=== PATIENT | male | born 1975 | race Caucasian/White ===

== ENCOUNTER 2018-12-05 05:23 | Emergency (ER) | payer SELFPAY ==
[~2018-12-05] VITALS: Ht 182.9 cm; Wt 83.9 kg
--- NOTE | 2018-12-05 05:30 | NUR ---
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 -TRAUMA, +DYSURIA, -HEMATURIA. NAD NOTED. RESP EVEN AND UNLABORED. PREVIOUS BURN NOTED ON R FOREARM. PT ON MONITOR IN BED 1. WILL CONTINUE TO MONITOR.
--- NOTE | 2018-12-05 05:33 | NUR ---
URINE COLLECTED AND SENT TO LAB
[2018-12-05 05:46] LABS: APPEARANCE,URINE CLEAR (CLEAR); BILIRUBIN,URINE NEGATIVE (NEGATIVE); BLOOD, URINE TRACE-INTA Ery/uL (NEGATIVE); COLOR,URINE YELLOW (YELLOW); KETONES,URINE NEGATIVE (NEGATIVE); LEUKOCYTE ESTERASE ,URINE NEGATIVE (NEGATIVE); NITRITE, URINE NEGATIVE (NEGATIVE); PROTEIN,URINE NEGATIVE (NEGATIVE); UGLUCOSE NEGATIVE (NEGATIVE)
[2018-12-05 06:01] LABS: BACTERIA,URINE Few /HPF (None Seen); RBC,URINE 21-50 /HPF (0-2); SQUAMOUS EPITHELIAL CELL,UR Rare /HPF (None Seen)
[2018-12-05] MEDS ORDERED: KETOROLAC TROMETHAMINE INJ 30 MG/ML VIAL ONE (06:50)
[2018-12-05] MEDS ORDERED: KETOROLAC TROMETHAMINE INJ 30 MG/ML VIAL IV ONE (07:00)
[2018-12-05] MEDS ORDERED: IV NS 0.9% 1,000 ML BAG IV ONE (07:00)
--- NOTE | 2018-12-05 07:10 | NUR ---
UNABLE TO OBTAIN IV ACCESS. AWARE.
--- NOTE | 2018-12-05 07:15 | NUR ---
PHLEB AT BEDSIDE FOR LAB DRAW
[2018-12-05 07:23] LABS: BASOPHILS % (AUTO) 0.4 % (0.0-2.0); EOSINOPHILS % (AUTO) 0.4 % (0.0-6.0); HEMATOCRIT 37 % (39-51); HEMOGLOBIN 12.3 g/dL (13.5-17.5); LYMPHOCYTES # (AUTO) 0.9 /CMM (0.8-4.8); LYMPHOCYTES % (AUTO) 16.6 % (20.0-44.0); MEAN CORPUSCULAR HGB CONC 33 g/dl (31.0-36.0); MEAN CORPUSCULAR VOLUME 87 fL (80-96); MONOCYTES # (AUTO) 0.4 /CMM (0.1-1.30); MONOCYTES % (AUTO) 7.6 % (2.0-12.0); NEUTROPHILS # (AUTO) 4.1 /CMM (1.8-8.9); PLATELET COUNT (AUTO) 253 /CMM (150-450); RED BLOOD CELL COUNT(AUTO) 4.31 MIL/uL (4.5-6.0); WHITE BLOOD COUNT (AUTO) 5.4 K/uL (4.3-11.0)
[2018-12-05 07:27] LABS: CALCIUM, SERUM 8.2 mg/dL (8.5-10.1); CREATININE 0.8 mg/dL (0.6-1.3); POTASSIUM 3.7 mmol/L (3.5-5.1)
--- NOTE | 2018-12-05 07:31 | NUR ---
REPORT GIVEN TO ANA LONG FOR AMANDA
[2018-12-05] MEDS ORDERED: HYDROCODONE/APAP 10/325MG 1 EA TABLET ONE (07:41)
--- NOTE | 2018-12-05 07:49 | NUR ---
PATIENT UPSET, INFORMED PATIENT MD DISCONTINUED MEDICATIONS AND SHE CHANGED MEDICATION ORDER TO NORCO. PATIENT REFUSING NORCO. MD AWARE. PATIENT LEFT AWOL. EXPLAINED RISKS AND BENEFITS. PATIENT STILL LEFT.
[2018-12-05 07:53] VITALS: BP 136/81
[2018-12-05] MEDS ORDERED: HYDROCODONE/APAP 10/325MG 1 EA TABLET PO ONE (08:00)
== END 2018-12-05 07:56 | disposition left against medical advice (07) ==
LOC: ER 05:30
DX: R31.9 Hematuria, unspecified (principal); F15.10 Other stimulant abuse, uncomplicated; F29 Unspecified psychosis not due to a substance or known physiological condition; F41.9 Anxiety disorder, unspecified; F17.200 Nicotine dependence, unspecified, uncomplicated
CPT/HCPCS: 36415; 80048; 80305; 81001; 85025; 99283; J1885; J7030; 81000-TC

== ENCOUNTER 2018-12-08 01:48 | Emergency (ER) | payer MEDICAID ==
[~2018-12-08] VITALS: Ht 180.3 cm; Wt 83.9 kg
[2018-12-08 01:51] VITALS: BP 116/67
[2018-12-08] MEDS ORDERED: IBUPROFEN 600 MG TABLET PO ONE (02:55)
[2018-12-08] MEDS: IBUPROFEN 600 MG TABLET PO ONE (03:01)
--- NOTE | 2018-12-08 03:24 | NUR ---
Patient given written and verbal discharge instructions. Patient verbalizes understanding of instructions. Patient is ambulatory with steady gait. Refuses offer of group home placement. Patient given list of available shelters in surrounding area, PT DENIES BEING HOMELESS.
== END 2018-12-08 04:00 | disposition home or self-care (01) ==
LOC: EDUNIT# 01:48 → ER 01:51
DX: S93.402A Sprain of unspecified ligament of left ankle, initial encounter (principal); F17.200 Nicotine dependence, unspecified, uncomplicated; Z59.0 Homelessness; W01.0XXA Fall on same level from slipping, tripping and stumbling without subsequent striking against object, initial encounter; Y93.01 Activity, walking, marching and hiking; Y92.89 Other specified places as the place of occurrence of the external cause; Y99.8 Other external cause status
CPT/HCPCS: 73590-TC; 73610-TC

== ENCOUNTER 2018-12-08 17:04 | Inpatient (IN) | payer MEDICAID ==
[~2018-12-08] VITALS: Ht 180.3 cm; Wt 79.4 kg
--- NOTE | 2018-12-08 17:38 | NUR ---
BIB SELF W C/O R GROIN HERNIA PAIN RADIATING TO R LOWER BACK, 06/11 PS, TO ER BED 14, HOOKED TO MONITOR, AWAITING MD WITT
--- NOTE | 2018-12-08 17:55 | NUR ---
SPINNING MULE OPERATOR DEGRASSE AT BEDSIDE
[2018-12-08] MEDS ORDERED: IV NS 0.9% 1,000 ML BAG IV ONE (18:00)
[2018-12-08] MEDS ORDERED: ONDANSETRON HCL/PF 4 MG/2 ML VIAL IVP ONE (18:00)
[2018-12-08] MEDS ORDERED: HYDROMORPHONE INJ 2 MG/ML DISP.SYRIN IV ONE (18:00)
[2018-12-08] MEDS ORDERED: ONDANSETRON HCL/PF 4 MG/2 ML VIAL ONE (18:15)
[2018-12-08] MEDS ORDERED: HYDROMORPHONE 1 MG/1 ML DISP.SYRIN ONE (18:16)
[2018-12-08 18:35] LABS: BASOPHILS # (AUTO) 0.1 /CMM (0.0-0.2); BASOPHILS % (AUTO) 1.2 % (0.0-2.0); EOSINOPHILS % (AUTO) 0.2 % (0.0-6.0); HEMATOCRIT 35 % (39-51); HEMOGLOBIN 11.7 g/dL (13.5-17.5); LYMPHOCYTES # (AUTO) 1.3 /CMM (0.8-4.8); LYMPHOCYTES % (AUTO) 18.2 % (20.0-44.0); MEAN CORPUSCULAR HGB CONC 34 g/dl (31.0-36.0); MEAN CORPUSCULAR VOLUME 85 fL (80-96); MONOCYTES # (AUTO) 0.6 /CMM (0.1-1.30); MONOCYTES % (AUTO) 8.4 % (2.0-12.0); NEUTROPHILS # (AUTO) 5.2 /CMM (1.8-8.9); PLATELET COUNT (AUTO) 273 /CMM (150-450); RED BLOOD CELL COUNT(AUTO) 4.05 MIL/uL (4.5-6.0); WHITE BLOOD COUNT (AUTO) 7.3 K/uL (4.3-11.0)
[2018-12-08 18:42] LABS: CALCIUM, SERUM 8.2 mg/dL (8.5-10.1); CREATININE 0.9 mg/dL (0.6-1.3); POTASSIUM 3.8 mmol/L (3.5-5.1)
[2018-12-08] MEDS ORDERED: IOHEXOL-300 100 ML VIAL IV ONE (18:44)
[2018-12-08 18:48] LABS: BILIRUBIN,DIRECT 0.1 mg/dL (0.0-0.2); BILIRUBIN,TOTAL 0.4 mg/dL (0.2-1.0)
--- NOTE | 2018-12-08 18:54 | NUR ---
WHEELED OUT VIA RNEY FOR CT SCAN
--- NOTE | 2018-12-08 19:10 | NUR ---
FARZANEH IV PERIPHERAL LINE INFILTRATED, REINSERTED IVP @ RFA 20G
--- NOTE | 2018-12-08 20:14 | NUR ---
CARLINE LOWRY PER TECHNICAL CABLE JOINTER DEGRASSE
[2018-12-08] MEDS ORDERED: LORAZEPAM INJ 2 MG/ML VIAL IV ONE (20:30)
[2018-12-08] MEDS ORDERED: LORAZEPAM INJ 2 MG/ML VIAL ONE (20:42)
[2018-12-08] MEDS ORDERED: OLANZAPINE 10 MG VIAL IM ONE ×2 (20:42→21:00)
[2018-12-08] MEDS ORDERED: KETOROLAC TROMETHAMINE INJ 30 MG/ML VIAL ONE (20:42)
--- NOTE | 2018-12-08 20:42 | NUR ---
[facility] dr fung. awaiting call back
--- NOTE | 2018-12-08 20:53 | NUR ---
URINE SAMPLE SENT TO LAB
[2018-12-08 20:59] LABS: APPEARANCE,URINE Clear (CLEAR); BILIRUBIN,URINE Negative (NEGATIVE); BLOOD, URINE Negative Ery/uL (NEGATIVE); COLOR,URINE Yellow (YELLOW); KETONES,URINE Negative (NEGATIVE); LEUKOCYTE ESTERASE ,URINE Negative (NEGATIVE); NITRITE, URINE Negative (NEGATIVE); PROTEIN,URINE 30 mg/dl (NEGATIVE); UGLUCOSE Negative (NEGATIVE)
[2018-12-08] MEDS ORDERED: KETOROLAC TROMETHAMINE INJ 30 MG/ML VIAL IV ONE (21:00)
[2018-12-08 21:12] LABS: BACTERIA,URINE None seen /HPF (None Seen); RBC,URINE 0-2 /HPF (0-2); SQUAMOUS EPITHELIAL CELL,UR Few /HPF (None Seen); WBC,URINE 0-2 /HPF (0-3)
--- NOTE | 2018-12-08 21:12 | NUR ---
EPID PANEL LANDSCAPE MANAGER DR DAIGLE PAGED FOR THE THIRD TIME.
--- NOTE | 2018-12-08 21:30 | NUR ---
PT IN BED ASLEEP, EASILY AROUSABLE BY VOICE. HOOKED TO MONITOR, KEPT SAFE, WARM AND COMFORTABLE.
--- NOTE | 2018-12-08 21:44 | NUR ---
PT ASSIGNED 120-2 TELE
--- NOTE | 2018-12-08 22:00 | NUR ---
REPORT GIVEN TO MS ERIC PEREZ OF TELE UNIT
[2018-12-08 22:45] VITALS: BP 97/50
[2018-12-08] MEDS ORDERED: OLANZAPINE 10 MG VIAL IM PRN (23:00)
[2018-12-08] MEDS ORDERED: MAGNESIUM HYDROXIDE 30 ML UDC PO PRN (23:00)
[2018-12-08] MEDS ORDERED: ONDANSETRON HCL/PF 4 MG/2 ML VIAL IVP PRN (23:00)
--- NOTE | 2018-12-08 23:00 | NUR ---
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 Patient is lethargic, not opening his eyes, not speaking, but follows simple commands. Unable to obtain information. Patient has IV access on RFA g#20, intact and patent, no signs of infiltration. Patient was cleaned and changed. Tele monitor in place, sinus rhythm 90. Skin assessment done- no skin issues. Noted an immobilizer on R lower leg. As per report, patient is homeless. Suitcase and belongings at bedside. Safety measures in place; call light within easy reach. Bed in lowest, locked position with siderails x 3up, bed alarm engaged. Will continue to monitor accordingly
--- NOTE | 2018-12-08 23:15 | NUR ---
RN NOTES Dr. Sylvester at bedside. Patient remains lethargic.
[2018-12-08] MEDS ORDERED: IV PREMIX NS +20MEQ KCL 1 L IV ONE (23:37)
[2018-12-09] VITALS (8 sets, daily range): BP systolic 105–120; BP diastolic 58–77
--- NOTE | 2018-12-09 | NUR ---
RN NOTES IVF of NS with KCL 20meQ started. Unable to scan barcode. IVF checked with CN and another RN. Manual barcode entered.
[2018-12-09] MEDS: MORPHINE SULFATE INJ 2 MG/ML DISP.SYRIN IV PRN ×4 (02:03→20:55)
--- NOTE | 2018-12-09 02:05 | NUR ---
RN NOTES Patient moaning and saying "pain". BP checked, 116/67. Morphine 2mg IV given as ordered
--- NOTE | 2018-12-09 06:23 | NUR ---
ACCOUNT DEVELOPER CLOSING NOTES Patient still asleep in bed, comfortable. Breathing even and unlabored. Not in any distress. Peripheral IV infusing at 80mL/hr. Tele monitor in place- sinus rhythm 89. All needs attended to. All medications given as ordered. No acute changes overnight. Safety measures in place. Call light within reach. Bed in low, locked position. Will endorse AMANDA to oncoming RN
[2018-12-09 06:45] LABS: BASOPHILS % (AUTO) 0.5 % (0.0-2.0); EOSINOPHILS % (AUTO) 0.2 % (0.0-6.0); HEMATOCRIT 34 % (39-51); HEMOGLOBIN 11.5 g/dL (13.5-17.5); LYMPHOCYTES % (AUTO) 25.4 % (20.0-44.0); MEAN CORPUSCULAR HGB CONC 34 g/dl (31.0-36.0); MEAN CORPUSCULAR VOLUME 85 fL (80-96); MONOCYTES # (AUTO) 0.9 /CMM (0.1-1.30); MONOCYTES % (AUTO) 11.4 % (2.0-12.0); NEUTROPHILS % (AUTO) 62.5 % (43.0-81.0); PLATELET COUNT (AUTO) 246 /CMM (150-450); RED BLOOD CELL COUNT(AUTO) 3.94 MIL/uL (4.5-6.0); WHITE BLOOD COUNT (AUTO) 8.1 K/uL (4.3-11.0)
[2018-12-09 07:09] LABS: ALBUMIN 2.5 g/dL (3.4-5.0); BILIRUBIN,TOTAL 0.6 mg/dL (0.2-1.0); CALCIUM, SERUM 7.9 mg/dL (8.5-10.1); CREATININE 0.8 mg/dL (0.6-1.3); MAGNESIUM 1.9 mg/dL (1.8-2.4); PHOSPHORUS 2.9 mg/dL (2.5-4.9); POTASSIUM 4.2 mmol/L (3.5-5.1); TOTAL PROTEIN, SERUM 6.1 g/dL (6.4-8.2)
--- NOTE | 2018-12-09 07:48 | NUR ---
VICE PRESIDENT OF OPERATIONS OPENING NOTES RECEIVED BEDSIDE REPORT PATIENT SLEEPING ABLE TO AROUSE WITH VOICE AND TOUCH A/O X3 SATURATING WELL ON ROOM AIR. NO SIGNS OR SYMPTOMS OF RESPIRATORY DISTRESS OR ACUTE PAIN NOTED AT THIS TIME. IVF RUNNING @80ML/HR IN RFA # [address] GAUGE[address]AFETY PRECAUTIONS IN PLACE BED ALARM ON AND IN LOW POSITION . CALL LIGHT WITHIN REACH WILL CONT TO MONITOR FOR ANY CHANGES
[2018-12-09] MEDS: ACETAMINOPHEN 325 MG TABLET PO PRN ×2 (08:05→15:38)
[2018-12-09] MEDS: PANTOPRAZOLE 40 MG TABLET.DR PO SCH (08:05)
--- NOTE | 2018-12-09 11:33 | NUR ---
Social service consult requested by Dr. Martínez for homelessness. Pt. 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 SW attempted to assess pt. however, was informed pt. Pt's RN Blanquita that pt. is not alert and oriented at this time. SW to follow up again with pt. when he is more alert and oriented.
[2018-12-09] MEDS: Potassium Chloride 20 MEQ in IV NS 0.9% 1,000 ML IV PRN ×3 (12:02)
[2018-12-09] MEDS: LORAZEPAM INJ 2 MG/ML VIAL IV PRN (15:44)
[2018-12-09] MEDS ORDERED: FEE PK DOSING 1 MIN EA MC ONE (17:08)
[2018-12-09] MEDS: CEFTRIAXONE 2 G in IV D5W 100 ML IV SCH (17:46)
[2018-12-09] MEDS: VANCOMYCIN 1.25 GM in IV D5W 500 ML IV SCH (18:32)
--- NOTE | 2018-12-09 19:06 | NUR ---
LITIGATOR CLOSING NOTES BEDSIDE REPORT GIVEN TO NOC PATIENT SLEEPING ABLE TO AROUSE WITH VOICE AND TOUCH A/O X3 SATURATING WELL ON ROOM AIR. NO SIGNS OR SYMPTOMS OF RESPIRATORY DISTRESS OR ACUTE PAIN NOTED AT THIS TIME.APPETITE GOOD IVF RUNNING @80ML/HR IN RFA # 20 GAUGE. SAFETY PRECAUTIONS IN PLACE BED ALARM ON AND IN LOW POSITION . CALL LIGHT WITHIN REACH WILL CONT TO MONITOR FOR ANY CHANGES
[2018-12-09] MEDS: HEPARIN SODIUM, PORCINE 5000 UNITS/1 ML VIAL SQ SCH (21:09)
[2018-12-10] VITALS (10 sets, daily range): BP systolic 114–131; BP diastolic 68–80
[2018-12-10] MEDS: MORPHINE SULFATE INJ 2 MG/ML DISP.SYRIN IV PRN ×4 (00:31→21:17)
[2018-12-10] MEDS: VANCOMYCIN 1.25 GM in IV D5W 500 ML IV SCH ×3 (01:18→18:06)
[2018-12-10] MEDS: LORAZEPAM INJ 2 MG/ML VIAL IV PRN ×2 (01:35→13:18)
[2018-12-10] MEDS: ACETAMINOPHEN 325 MG TABLET PO PRN (03:06)
[2018-12-10 06:45] LABS: BASOPHILS % (AUTO) 0.4 % (0.0-2.0); EOSINOPHILS % (AUTO) 0.2 % (0.0-6.0); HEMATOCRIT 34 % (39-51); HEMOGLOBIN 11.8 g/dL (13.5-17.5); LYMPHOCYTES # (AUTO) 1.9 /CMM (0.8-4.8); LYMPHOCYTES % (AUTO) 21.7 % (20.0-44.0); MEAN CORPUSCULAR HGB CONC 34 g/dl (31.0-36.0); MEAN CORPUSCULAR VOLUME 84 fL (80-96); MONOCYTES % (AUTO) 11.5 % (2.0-12.0); NEUTROPHILS # (AUTO) 5.7 /CMM (1.8-8.9); NEUTROPHILS % (AUTO) 66.2 % (43.0-81.0); PLATELET COUNT (AUTO) 263 /CMM (150-450); RED BLOOD CELL COUNT(AUTO) 4.12 MIL/uL (4.5-6.0); WHITE BLOOD COUNT (AUTO) 8.6 K/uL (4.3-11.0)
[2018-12-10 06:55] LABS: CALCIUM, SERUM 8.1 mg/dL (8.5-10.1); CREATININE 0.7 mg/dL (0.6-1.3); MAGNESIUM 1.9 mg/dL (1.8-2.4); PHOSPHORUS 3.1 mg/dL (2.5-4.9); POTASSIUM 3.7 mmol/L (3.5-5.1)
--- NOTE | 2018-12-10 06:55 | NUR ---
CAFE TEAM MEMBER CLOSING NOTES, PATIENT SLEEPING ABLE TO AROUSE WITH VERBAL STIMULI, SATURATING WELL ON ROOM AIR, NO SOB/ACUTE DISTRESS NOTED AT THIS TIME, REMAINED STABLE THROUGHOUT THE NIGHT, IV ACCES PATENT AND INTACT, NO S/S OF INFILTRATION NOTED, IVF RUNNING @80ML/HR IN RFA # 20 GAUGE, SAFETY PRECAUTIONS IN PLACE, BED LOCKED AND IN LOW POSITION, CALL LIGHT WITHIN REACH, WILL ENDORSE CONTINUITY OF CARE TO ONCOMING NURSE.
[2018-12-10] MEDS: Potassium Chloride 20 MEQ in IV NS 0.9% 1,000 ML IV PRN (07:22)
--- NOTE | 2018-12-10 07:25 | NUR ---
RN OPENING NOTE RECEIVED PATIENT ASLEEP, BUT EASILY AROUSABLE. ALERT AND ORIENTED. USES THE URINAL. ON TELE MONITOR SR 80-90s. HAS RIGHT FOREARM #20, WITH KCL 20 M0 MEQ IN NS AT 80 ML/HR. BED. PATIENT IS AMBULATORY PER NOC SHIFT. BED ON LOWEST POSITION. CALL LIGHT WITHIN REACH, WILL CONT TO MONITOR
[2018-12-10] MEDS: PANTOPRAZOLE 40 MG TABLET.DR PO SCH (08:20)
[2018-12-10] MEDS: HEPARIN SODIUM, PORCINE 5000 UNITS/1 ML VIAL SQ SCH ×2 (08:25→21:24)
--- NOTE | 2018-12-10 10:56 | NUR ---
ILAN met with pt. bedside for an assessment. Pt. is alert and oriented x 3. Pt. has his suitcase bedside. Pt. appears disheveled. SW inquired with pt. if he is homeless. Pt. replied stating, " I am in between places." SW asked pt. to elaborate his living situation. Pt. declined to participate in the assessment and informed SW, " I feel answer your questions when I feel better." Pt. is not cooperating at this time. SW to reassess when pt. is cooperative and feels better. ILAN updated LEONARD FRANKI Winslow with the aforementioned information.
[2018-12-10] MEDS: NICOTINE PATCH (14MG) 14 MG PATCH.TD24 TD SCH (14:28)
--- NOTE | 2018-12-10 16:02 | NUR ---
RN NOTE PATIENT WAS COMPLAINING OF PAIN ALL DAY, RIGHT LOWER BACK AND GENERALIZED PAIN. HAS BEEN GIVEN MORPHINE AND ATIVAN. IVF STILL RUNNING. PATIENT ASKED FOR NICOTINE PATCH. JESUS PENN ORDERED AND WAS GIVEN TO THE PATIENT. PATIENT CURRENTLY ASLEEP.
[2018-12-10] MEDS: CEFTRIAXONE 2 G in IV D5W 100 ML IV SCH (17:20)
--- NOTE | 2018-12-10 18:51 | NUR ---
RN CLOSING NOTE PATIENT ASLEEP, BUT EASILY AROUSABLE. CONSTANTLY ASKING FOR PAIN MEDICATION AND ATIVAN. ALL MEDS ARE GIVEN, PLUS ABX. URINAL OUTPUT 1800 ML. NO BM. DID NOT TRY TO AMBULATE TODAY. SLEPT ALL DAY. REFUSES TO BE BOTHERED AND CLEANED. CALL LIGHT WITHIN REACH. ALL NEEDS ARE MET. WILL ENDORSE TO NOC SHIFT
--- NOTE | 2018-12-10 19:50 | NUR ---
RN OPENING NOTE RECEIVED PATIENT ASLEEP, BUT EASILY AROUSAL. PATIENT IS ALERT AND ORIENTEDX4. USES THE URINAL. ON TELE MONITOR WITH SR . HAS RIGHT FOREARM #20 IV LINE PATIENT AND INTACT WITH KCL 20 M0 MEQ IN NS AT 80 ML/HR. PATIENT IS AMBULATORY PER AM SHIFT BUT DOESN'T WANT TO WALK AND WANTS TO STAY IN BED. BED ON LOWEST, LOCKED POSITION. CALL LIGHT WITHIN REACH, WILL CONT TO MONITOR
[2018-12-11] VITALS (7 sets, daily range): BP systolic 101–125; BP diastolic 64–80
[2018-12-11] MEDS: LORAZEPAM INJ 2 MG/ML VIAL IV PRN ×2 (00:08→10:15)
[2018-12-11] MEDS: VANCOMYCIN 1.25 GM in IV D5W 500 ML IV SCH ×3 (02:32→19:00)
[2018-12-11] MEDS: Potassium Chloride 20 MEQ in IV NS 0.9% 1,000 ML IV PRN (02:36)
[2018-12-11] MEDS: MORPHINE SULFATE INJ 2 MG/ML DISP.SYRIN IV PRN ×5 (03:53→22:35)
--- NOTE | 2018-12-11 04:05 | NUR ---
RN NOTES PATIENT'S REPORT IS GIVEN TO ANA VEGA FOR CONT. OF PATIENT CARE. PATIENT IS LYING IN BED,AWAKE, ALERT AND ORIENTED X2-3. BREATHING EVEN AND UNLABORED ON ROOM AIR. NO SOB, RESPIRATORY DISTRESS OR COMPLAINTS OF PAIN NOTED AT THIS TIME.PATIENT IS IN STABLE CONDITION.
--- NOTE | 2018-12-11 04:10 | NUR ---
TELE/RN NOTES RECEIVED REPORT AND PT. FROM ANA SEQUEIRA. PT. IS LYING IN BED. PT. IS AWAKE, ALERT AND ORIENTED X2-3. BREATHING EVEN AND UNLABORED ON ROOM AIR. NO SOB, RESPIRATORY DISTRESS OR COMPLAINTS OF PAIN NOTED AT THIS TIME. PT. WITH RIGHT FOREARM 20 GAUGE PERIPHERAL IV PRESENT, PATENT AND INTACT ADMINISTERING TO PT. NS WITH 20 MEQ KCL @ 80 ML/HR. BED LOCKED AND IN LOWEST POSITION, SIDE RAILS UP X2, CALL LIGHT WITHIN REACH, WILL CONTINUE TO MONITOR.
--- NOTE | 2018-12-11 07:10 | NUR ---
MEDICARE COORDINATOR OPENING NOTES RECEIVED PT LYING ON BED.ALERT/ORIENTED X2-3.ON TELE HR IS 90 WITH SR.ON ROOM AIR,TOLEARTING WELL.NO SOB AND ACUTE ISTRESS NOTYED Addendum: 12/11/18 at 0810 by WOODY RUSH RN IV LINE IS ON RIGHT FA G20 WITH IV FLUIDS RUNNING,IV SITE IS CLEAN,DRY AND INTACT,NO INFILTRATION NOTED.SAFETY IS MAINTAINED AT ALL TIMES.BED IS IN LOW POSITION AND LOCKED.CALL LIGHT IS WITHIN REACH.WILL CONTINUE TO MONITOR THE PT CLOSELY.
--- NOTE | 2018-12-11 07:13 | NUR ---
TELE/RN NOTES PT. IS LYING IN BED RESTING. BREATHING EVEN AND UNLABORED ON ROOM AIR. NO SOB, RESPIRATORY DISTRESS OR COMPLAINTS OF PAIN NOTED AT THIS TIME. PT. WITH RIGHT FOREARM 20 GAUGE PERIPHERAL IV PRESENT, PATENT AND INTACT ADMINISTERING TO PT. NS WITH 20 MEQ KCL @ 80 ML/HR. ALL PT. NEEDS MET. BED LOCKED AND IN LOWEST POSITION, SIDE RAILS UP X2, CALL LIGHT WITHIN REACH, WILL ENDORSE TO DAYSHIFT NURSE FOR CONTINUITY OF CARE.
[2018-12-11 08:19] LABS: CALCIUM, SERUM 8.3 mg/dL (8.5-10.1); CREATININE 0.8 mg/dL (0.6-1.3); POTASSIUM 4.1 mmol/L (3.5-5.1)
[2018-12-11 08:24] LABS: BASOPHILS % (AUTO) 0.4 % (0.0-2.0); EOSINOPHILS % (AUTO) 0.3 % (0.0-6.0); HEMATOCRIT 36 % (39-51); HEMOGLOBIN 12.1 g/dL (13.5-17.5); LYMPHOCYTES # (AUTO) 2.1 /CMM (0.8-4.8); LYMPHOCYTES % (AUTO) 28.2 % (20.0-44.0); MEAN CORPUSCULAR HGB CONC 34 g/dl (31.0-36.0); MEAN CORPUSCULAR VOLUME 85 fL (80-96); MONOCYTES # (AUTO) 0.8 /CMM (0.1-1.30); MONOCYTES % (AUTO) 11.1 % (2.0-12.0); NEUTROPHILS # (AUTO) 4.4 /CMM (1.8-8.9); PLATELET COUNT (AUTO) 314 /CMM (150-450); RED BLOOD CELL COUNT(AUTO) 4.23 MIL/uL (4.5-6.0); WHITE BLOOD COUNT (AUTO) 7.3 K/uL (4.3-11.0)
[2018-12-11] MEDS: NICOTINE PATCH (14MG) 14 MG PATCH.TD24 TD SCH (10:15)
[2018-12-11] MEDS: PANTOPRAZOLE 40 MG TABLET.DR PO SCH (10:30)
[2018-12-11] MEDS: HEPARIN SODIUM, PORCINE 5000 UNITS/1 ML VIAL SQ SCH ×2 (10:30→20:56)
--- NOTE | 2018-12-11 16:00 | NUR ---
ENVELOPE SEALING MACHINE OPERATOR NOTES NOTED TO FILI ARREGUIN NP ABOUT LEFT SHOULDER PAIN,NNO NOTED.
[2018-12-11] MEDS: CEFTRIAXONE 2 G in IV D5W 100 ML IV SCH (17:33)
[2018-12-11] MEDS: LACTOBACILLUS RHAMNOSUS GG 1 EACH CAP.SPRINK PO SCH (17:33)
[2018-12-11] MEDS: CYCLOBENZAPRINE 10 MG TABLET PO PRN (17:33)
--- NOTE | 2018-12-11 19:01 | NUR ---
CERTIFIED WELDER CLOSING NOTES PT IS LYING ON BED.ALERT/ORIENTED X1.PAIN ,MEDS ARE GIVEN.ALL DUE MEDS ARE GIVEN.NO SIGNIFICANT CHANGES NOTED IN THE SHIFT.ENDORSED TO COOLING TOWER TECHNICIAN RN FOR AMANDA.
--- NOTE | 2018-12-11 19:38 | NUR ---
RN Notes Received patient awake, alert and oriented x2, with periods of confusion noted. Patient verbalizes pain on his left neck and right groin. 02/09 just had morphine 2 mg IVP at 1930. Tele monitor reads sinus rhythm with heart rate at 97. IV access on left forearm patent and intact with ongoing IVF infusing well. Plan of care discussed with the patient and verbalized understanding. Safety measures and fall precaution in place with call light within reach. Will continue to monitor patient.
--- NOTE | 2018-12-11 22:35 | NUR ---
RN Notes Patient complains of pain on his right groin, 05/12. Morphine 2 mg given IVP. Patient refusing for the telemonitor on, risk and benefits explained and patient strongly refused, charge nurse made aware. Will continue to monitor patient.
[2018-12-12] VITALS: BP 110/60
[2018-12-12] MEDS: CYCLOBENZAPRINE 10 MG TABLET PO PRN ×2 (00:52→08:56)
--- NOTE | 2018-12-12 00:52 | NUR ---
RN Notes Patient complains muscle spasms on his right neck, flexeril 10 mg tab given PO and tolerated well. Will continue to monitor patient.
[2018-12-12] MEDS: MORPHINE SULFATE INJ 2 MG/ML DISP.SYRIN IV PRN ×5 (01:54→15:08)
[2018-12-12] MEDS: Potassium Chloride 20 MEQ in IV NS 0.9% 1,000 ML IV PRN (02:05)
[2018-12-12] MEDS: VANCOMYCIN 1.25 GM in IV D5W 500 ML IV SCH ×3 (02:07→18:00)
[2018-12-12 04:00] VITALS: BP 115/78
[2018-12-12 06:46] LABS: BASOPHILS % (AUTO) 0.8 % (0.0-2.0); EOSINOPHILS % (AUTO) 1.5 % (0.0-6.0); HEMATOCRIT 35 % (39-51); HEMOGLOBIN 11.7 g/dL (13.5-17.5); LYMPHOCYTES # (AUTO) 1.7 /CMM (0.8-4.8); LYMPHOCYTES % (AUTO) 31.1 % (20.0-44.0); MEAN CORPUSCULAR HGB CONC 34 g/dl (31.0-36.0); MEAN CORPUSCULAR VOLUME 85 fL (80-96); MONOCYTES # (AUTO) 0.6 /CMM (0.1-1.30); MONOCYTES % (AUTO) 10.4 % (2.0-12.0); NEUTROPHILS % (AUTO) 56.2 % (43.0-81.0); PLATELET COUNT (AUTO) 373 /CMM (150-450); RED BLOOD CELL COUNT(AUTO) 4.09 MIL/uL (4.5-6.0); WHITE BLOOD COUNT (AUTO) 5.4 K/uL (4.3-11.0)
--- NOTE | 2018-12-12 06:56 | NUR ---
RN Notes Patient slept well overnight, vital signs stable, afebrile. Telemonitor off, patient refused it on, can't sleep with it. Kept pain at tolerable level. Current diet tolerated well, denies nausea and vomiting. All needs attended. Fall precaution observed. Will endorse to morning RN for continuity of care.
--- NOTE | 2018-12-12 07:00 | NUR ---
SOCIAL WORK MANAGER OPENING NOTES RECEIVED PT LYING ON BED.ALERT/ORIENTED X2-3.ON ROOM AIR,TOLERATING WELL.NO SOB AND ACUTE DISTRESS NOTED,C/O PAIN 9/10 ON LEFT SIDE OF NECK. IV LINE IS ON LEFT FA G20 WITH IV FLUIDS RUNNING,IV SITE IS CLEAN,DRY AND INTACT,NO INFILTRATION NOTED.SAFETY IS MAINTAINED AT ALL TIMES.BED IS IN LOW POSITION AND LOCKED.CALL LIGHT IS WITHIN REACH.PT REFUSED TO HAVE INSECTICIDE SUPERVISOR.WILL CONTINUE TO MONITOR THE PT CLOSELY.
[2018-12-12] MEDS: PANTOPRAZOLE 40 MG TABLET.DR PO SCH (07:46)
[2018-12-12 08:00] VITALS: BP 130/78
[2018-12-12] MEDS: LACTOBACILLUS RHAMNOSUS GG 1 EACH CAP.SPRINK PO SCH ×2 (08:15→17:18)
[2018-12-12] MEDS: NICOTINE PATCH (14MG) 14 MG PATCH.TD24 TD SCH (08:15)
[2018-12-12] MEDS: HEPARIN SODIUM, PORCINE 5000 UNITS/1 ML VIAL SQ SCH (08:31)
[2018-12-12 08:56] LABS: CALCIUM, SERUM 8.4 mg/dL (8.5-10.1); CREATININE 0.8 mg/dL (0.6-1.3); POTASSIUM 4.1 mmol/L (3.5-5.1)
--- NOTE | 2018-12-12 11:34 | NUR ---
SW attempted to meet with pt. again to assess pt., however pt. is not cooperating with SW. ILAN updated LEONARDVirgilio Corado.
--- NOTE | 2018-12-12 15:20 | NUR ---
MS RN NOTES NOTED TO FILI ARREGUIN,PROGRAM ARCHITECT REGARDS PT CONCERNS ABOUT PAIN ON LEFT SIDE OF NECK AND HE REALLY WANTS TO DO SOME KIND OF TEST TO RULE OUT.FILI REPLIED HE DONE WITH CT SCAN AND NO ACUTE CHANGES NOTED AND NO ANY CHANGE OF CONDITION NOTED ON LEFT SIDE OF NECK SO THERE IS NO NEED FOR REPEAT TEST.PT MADE AWARE.
--- NOTE | 2018-12-12 15:54 | NUR ---
ILAN received a call from sample case porter Iris that pt. is being discharged. ILAN met with pt. bedside alongside pt's RN and FRANKI Corado and security site supervisor. Pt. is yelling stating, " I am not ready to be discharged" and was complaining of neck pain and hernia. ILAN informed pt. that Dr. Mahoney did speak with him this morning and informed him regarding his discharge. Pt. is rude and mean to the staff bedside. ILAN had to redirect pt. several times to ask him to stop yelling. ILAN informed pt. she came by several time to assess him regarding discharge plan but he was uncooperative. Pt. stated, he has to make some calls regarding finding a place to go. Early dinner was called for the pt. ILAN attempted to talk to pt. regarding homeless resources but pt. was not listening. ILAN left the homeless resources with pt's RN along with Homeless Patient Waiver Form for the pt. to sign. border guard is waiting outside of pt's room for safety concerns. Addendum: 12/12/18 at 1621 by JUAN JOSE TALAVERA ILAN spoke with LEONARD Corado who informed ILAN that pt. refused to sign the Homeless Waiver. Homeless Discharge Checklist was completed by ILAN.
[2018-12-12 16:00] VITALS: BP 128/68
[2018-12-12] MEDS: CEFTRIAXONE 2 G in IV D5W 100 ML IV SCH (17:19)
--- NOTE | 2018-12-12 18:00 | NUR ---
MS RN NOTES PT REFUSED TO LEAVE FROM HOSPITAL.EXPLAINED X3 THE DISCHARGE PROCEDURES AND PROCESS PLAN AND TRIED TO ASK WHERE HE CAME FROM,HE REFUSED TO ANSWER ALL THOSE QUESTIONS AND HE WAS YELLING AND ARGUING WITH THE NURSE ,SUPERVISOR INSPECTING AND CHARGE NURSE.HANGED THE IV ANTIBIOTICS ROCEPHIN DUE @1700,HE SAID THE IV LINE IS HURTING.CHECKED THE IV SITE.ITS FLUSHED AND NO REDNESS,NO INFILTRATION NOTED.CALLED THE CLOTH MERCERIZING SUPERVISOR AND TRIED TO EXPLAIN THE PROCEDURE.HE VERBALIZED AFTER GETTING SHOWER AND SHAVE,HE WILL LEAVE.PT IS GETTING SHOWER NOW.IV LINE ON LEFT FA G20 IS REMOVED.NO BLEEDING NOTED.
--- NOTE | 2018-12-12 19:00 | NUR ---
MS RN NOTES PT HAD SHOWER.REFUSED TO SIGN THE DISCHARGE PAPERWORK.HE SAID HE WANTS MORE TIME TO PREPARE THE STUFFS AND DRESS UP.TAP CARD IS GIVEN.REPORT GIVEN TO MOTHERS HELPER RN LAQUITA PATEL.
--- NOTE | 2018-12-12 19:40 | NUR ---
MS RN NOTES PT D/C STABLE WITH OUTPATIENT SERVICES DIRECTOR.
== END 2018-12-12 20:40 | disposition home or self-care (01) | DRG 254 ==
LOC: ER 17:37 → TELE1 21:47 → MEDSG1 12-12 09:06
PROVIDERS: ADMIT Internal Medicine; ATTEND Hospitalist
DX: K40.90 Unilateral inguinal hernia, without obstruction or gangrene, not specified as recurrent (principal); M62.82 Rhabdomyolysis; E44.0 Moderate protein-calorie malnutrition; N28.0 Ischemia and infarction of kidney; E87.1 Hypo-osmolality and hyponatremia; F29 Unspecified psychosis not due to a substance or known physiological condition; F17.200 Nicotine dependence, unspecified, uncomplicated; D50.9 Iron deficiency anemia, unspecified; F15.10 Other stimulant abuse, uncomplicated; N20.0 Calculus of kidney; Z59.0 Homelessness; F41.9 Anxiety disorder, unspecified; D18.09 Hemangioma of other sites; Z98.890 Other specified postprocedural states; G89.29 Other chronic pain
CPT/HCPCS: 36415; 71045-TC; 73590-TC; 73610-TC; 80048-TC; 80053-TC; 80076-TC; 80202-TC; 80305; 81000-TC; 82550-TC; 82962-TC; 83540-TC; 83615-TC; 83735-TC; 84100-TC; 85025-TC; 85730-TC; 87040-TC; 87081-TC; 93307-TC; A6402; G0378; J0696; J1170; J1644; J1885; J2060; J2270; J2405; J3370; J3480; J3490; J7030; J7060; Q9967

== ENCOUNTER 2019-01-03 21:26 | Emergency (ER) | payer MEDICAID ==
[~2019-01-03] VITALS: Ht 177.8 cm; Wt 90.7 kg
--- NOTE | 2019-01-03 21:40 | NUR ---
PT [id number] FROM [address] C/O L SIDE FLANK PAIN X 1 HOUR. PT AOX3. PT ON MONITOR IN BED 9. WILL CONTINUE TO MONITOR.
--- NOTE | 2019-01-03 21:45 | NUR ---
BLOOD DRAWN AND GIVEN TO LAB
[2019-01-03 22:29] LABS: BASOPHILS # (AUTO) 0.1 /CMM (0.0-0.2); BASOPHILS % (AUTO) 0.9 % (0.0-2.0); EOSINOPHILS % (AUTO) 0.2 % (0.0-6.0); HEMATOCRIT 32 % (39-51); HEMOGLOBIN 10.7 g/dL (13.5-17.5); LYMPHOCYTES # (AUTO) 1.8 /CMM (0.8-4.8); LYMPHOCYTES % (AUTO) 20.3 % (20.0-44.0); MEAN CORPUSCULAR HGB CONC 34 g/dl (31.0-36.0); MEAN CORPUSCULAR VOLUME 85 fL (80-96); MONOCYTES # (AUTO) 0.5 /CMM (0.1-1.30); MONOCYTES % (AUTO) 6.1 % (2.0-12.0); NEUTROPHILS # (AUTO) 6.3 /CMM (1.8-8.9); NEUTROPHILS % (AUTO) 72.5 % (43.0-81.0); PLATELET COUNT (AUTO) 244 /CMM (150-450); RED BLOOD CELL COUNT(AUTO) 3.75 MIL/uL (4.5-6.0); WHITE BLOOD COUNT (AUTO) 8.6 K/uL (4.3-11.0)
[2019-01-03] MEDS ORDERED: KETOROLAC TROMETHAMINE INJ 30 MG/ML VIAL IV ONE (22:30)
[2019-01-03] MEDS ORDERED: IV NS 0.9% 1,000 ML BAG IV ONE (22:30)
[2019-01-03] MEDS ORDERED: ONDANSETRON HCL/PF 4 MG/2 ML VIAL IVP ONE (22:30)
[2019-01-03 22:40] LABS: ALANINE AMINOTRANSFERASE 25 U/L (12-78); ALBUMIN 2.8 g/dL (3.4-5.0); ALKALINE PHOSPHATASE 68 U/L (46-116); ASPARTATE AMINOTRANSFERASE 38 U/L (15-37); BILIRUBIN,DIRECT 0.1 mg/dL (0.0-0.2); BILIRUBIN,TOTAL 0.3 mg/dL (0.2-1.0); CALCIUM, SERUM 8.4 mg/dL (8.5-10.1); CARBON DIOXIDE 30 mmol/L (21-32); CHLORIDE 100 mmol/L (98-107); CREATININE 0.8 mg/dL (0.6-1.3); GLUCOSE 93 mg/dL (74-106); LIPASE 146 U/L (73-393); POTASSIUM 3.5 mmol/L (3.5-5.1); SODIUM SERUM 136 mmol/L (136-145); TOTAL PROTEIN, SERUM 6.9 g/dL (6.4-8.2); UREA NITROGEN, BLOOD 9 mg/dL (7-18)
[2019-01-03] MEDS ORDERED: ONDANSETRON HCL/PF 4 MG/2 ML VIAL ONE (22:40)
[2019-01-03] MEDS ORDERED: KETOROLAC TROMETHAMINE INJ 30 MG/ML VIAL ONE (22:40)
--- NOTE | 2019-01-03 23:19 | NUR ---
URINE COLLECTED AND SENT TO LAB
[2019-01-03 23:22] LABS: APPEARANCE,URINE Clear (CLEAR); BILIRUBIN,URINE Negative (NEGATIVE); BLOOD, URINE Trace-lysed Ery/uL (NEGATIVE); COLOR,URINE Yellow (YELLOW); KETONES,URINE Negative (NEGATIVE); LEUKOCYTE ESTERASE ,URINE Negative (NEGATIVE); NITRITE, URINE Negative (NEGATIVE); PROTEIN,URINE Negative (NEGATIVE); UGLUCOSE Negative (NEGATIVE)
[2019-01-03] MEDS ORDERED: ACETAMINOPHEN ES 500 MG TABLET ONE (23:24)
[2019-01-03] MEDS ORDERED: ACETAMINOPHEN ES 500 MG TABLET PO ONE (23:30)
[2019-01-03 23:39] LABS: BACTERIA,URINE None seen /HPF (None Seen); RBC,URINE 0-2 /HPF (0-2); SQUAMOUS EPITHELIAL CELL,UR Few /HPF (None Seen); WBC,URINE 0-2 /HPF (0-3)
[2019-01-04 00:01] VITALS: BP 94/62
--- NOTE | 2019-01-04 00:01 | NUR ---
Patient is resting comfortably in bed with eyes closed. Easily aroused. VSS.
--- NOTE | 2019-01-04 00:36 | NUR ---
RADIOLOGY AT BEDSIDE FOR XRAY
--- NOTE | 2019-01-04 01:56 | NUR ---
CALLED [facility] TO HAVE XRAY READ.
[2019-01-04] MEDS ORDERED: IBUPROFEN 400 MG TABLET PO ONE (02:30)
[2019-01-04] MEDS ORDERED: IBUPROFEN 400 MG TABLET ONE (02:31)
--- NOTE | 2019-01-04 02:31 | NUR ---
IV removed. Catheter intact and site benign. Pressure and 4x4 applied to site. No bleeding noted.
== END 2019-01-04 03:28 | disposition home or self-care (01) ==
LOC: ER 21:27
DX: R10.9 Unspecified abdominal pain (principal); F17.200 Nicotine dependence, unspecified, uncomplicated; R00.0 Tachycardia, unspecified; Z76.5 Malingerer [conscious simulation]; Z60.2 Problems related to living alone
CPT/HCPCS: 36415; 71045; 80048; 80076; 81001; 83690; 84484; 85025; 96374; 96375; 99284; J1885; J2405; J7030; 81000-TC

== ENCOUNTER 2019-03-22 09:04 | Emergency (ER) | payer MEDICAID ==
[~2019-03-22] VITALS: Ht 175.3 cm; Wt 78.0 kg
--- NOTE | 2019-03-22 09:15 | NUR ---
Called NO response. Per guitar technician patient went out to smoke. Saw patient at the end of the walkway/corner smoking
--- NOTE | 2019-03-22 10:00 | NUR ---
patient BIBself came in verbalizing hes in pain. connected to the monitor and pulse ox. kept comfortble, initiated IV access and blood drawned. Will continue to monitor accordingly.
--- NOTE | 2019-03-22 10:03 | NUR ---
urine collected and sent to lab.
[2019-03-22 10:06] LABS: BASOPHILS # (AUTO) 0.1 /CMM (0.0-0.2); EOSINOPHILS % (AUTO) 1.3 % (0.0-6.0); HEMATOCRIT 32 % (39-51); HEMOGLOBIN 10.4 g/dL (13.5-17.5); LYMPHOCYTES # (AUTO) 1.5 /CMM (0.8-4.8); LYMPHOCYTES % (AUTO) 20.3 % (20.0-44.0); MEAN CORPUSCULAR HGB CONC 32 g/dl (31.0-36.0); MEAN CORPUSCULAR VOLUME 80 fL (80-96); MONOCYTES # (AUTO) 0.6 /CMM (0.1-1.30); MONOCYTES % (AUTO) 7.4 % (2.0-12.0); NEUTROPHILS # (AUTO) 5.2 /CMM (1.8-8.9); PLATELET COUNT (AUTO) 372 /CMM (150-450); RED BLOOD CELL COUNT(AUTO) 4.05 MIL/uL (4.5-6.0); WHITE BLOOD COUNT (AUTO) 7.4 K/uL (4.3-11.0)
[2019-03-22 10:11] VITALS: BP 99/72
[2019-03-22 10:13] LABS: CALCIUM, SERUM 8.7 mg/dL (8.5-10.1); CARBON DIOXIDE 29 mmol/L (21-32); CHLORIDE 102 mmol/L (98-107); CREATININE 0.7 mg/dL (0.6-1.3); GLUCOSE 90 mg/dL (74-106); POTASSIUM 3.6 mmol/L (3.5-5.1); SODIUM SERUM 138 mmol/L (136-145); UREA NITROGEN, BLOOD 18 mg/dL (7-18)
[2019-03-22] MEDS ORDERED: KETOROLAC TROMETHAMINE INJ 30 MG/ML VIAL IM ONE (11:30)
[2019-03-22] MEDS ORDERED: ACETAMINOPHEN 325 MG TABLET PO ONE (11:30)
[2019-03-22] MEDS ORDERED: KETOROLAC TROMETHAMINE 15 MG/ML VIAL ONE (11:42)
[2019-03-22] MEDS ORDERED: ACETAMINOPHEN 325 MG TABLET ONE (11:42)
--- NOTE | 2019-03-22 12:28 | NUR ---
CALLED MATHS TUTOR MARCELLA FOR HOMELESS PLACEMENT AND LEFT VOICEMAIL
--- NOTE | 2019-03-22 13:46 | NUR ---
CALLED HOMELESS CUSTODIAL RESCUE [facility] AND LEFT VOICEMAIL
--- NOTE | 2019-03-22 17:30 | NUR ---
patient in the waiting room, food provided, waiting for the social service in the morning for residential resources. Intformed patient to call the nurse if needs something.
--- NOTE | 2019-03-22 19:27 | NUR ---
endorsed to charge nurse.
--- NOTE | 2019-03-22 22:00 | NUR ---
PT NOT IN WAITING ROOM, NAME CALLED MULTIPLE TIMES.
--- NOTE | 2019-03-22 23:19 | NUR ---
PT NOT IN WAITING ROOM, NAME CALLED MULTIPLE TIMES.
== END 2019-03-22 23:24 | disposition home or self-care (01) ==
LOC: ER 09:09
DX: R07.89 Other chest pain (principal); D64.9 Anemia, unspecified; F11.90 Opioid use, unspecified, uncomplicated; F15.90 Other stimulant use, unspecified, uncomplicated; F90.9 Attention-deficit hyperactivity disorder, unspecified type; F17.200 Nicotine dependence, unspecified, uncomplicated; Z59.0 Homelessness
CPT/HCPCS: 36415; 71045; 80048; 80305; 80307; 84484; 85025; 93005; 96374; 99284; J1885; G0480

== ENCOUNTER 2020-07-02 15:41 | Inpatient (IN) | payer MEDICAID, OTHER ==
[~2020-07-02] VITALS: Ht 182.9 cm; Wt 73.5 kg
--- NOTE | 2020-07-02 15:41 | NUR ---
PT BIBRA 88 FROM HOME C/O CHEST PAIN RADIATING TO NECK STARTED 30 MINS PHARMACY RETAIL SUPPORT SPECIALIST. PT IS AAOX4, NOT IN RESPIRATORY DISTRESS, HOOKED TO ESCORT CAR DRIVER, KEPT RESTED AND COMFORTABLE. WILL CONTINUE TO MONITOR.
--- NOTE | 2020-07-02 15:55 | NUR ---
BLOOD DRAWN AND SENT TO LAB.
--- NOTE | 2020-07-02 16:00 | NUR ---
TECH AT BEDSIDE FOR EKG.
[2020-07-02 16:25] LABS: BASOPHILS % (AUTO) 0.6 % (0.0-2.0); EOSINOPHILS % (AUTO) 0.5 % (0.0-6.0); HEMATOCRIT 30 % (39-51); HEMOGLOBIN 9.1 g/dL (13.5-17.5); LYMPHOCYTES # (AUTO) 0.9 /CMM (0.8-4.8); LYMPHOCYTES % (AUTO) 13.7 % (20.0-44.0); MEAN CORPUSCULAR HGB CONC 31 g/dl (31.0-36.0); MEAN CORPUSCULAR VOLUME 74 fL (80-96); MONOCYTES # (AUTO) 0.3 /CMM (0.1-1.30); MONOCYTES % (AUTO) 5.2 % (2.0-12.0); NEUTROPHILS # (AUTO) 5.2 /CMM (1.8-8.9); PLATELET COUNT (AUTO) 335 /CMM (150-450); RED BLOOD CELL COUNT(AUTO) 4.01 MIL/uL (4.5-6.0); WHITE BLOOD COUNT (AUTO) 6.5 K/uL (4.3-11.0)
[2020-07-02 16:41] LABS: CALCIUM, SERUM 8.8 mg/dL (8.5-10.1); CARBON DIOXIDE 27 mmol/L (21-32); CHLORIDE 103 mmol/L (98-107); CREATININE 0.7 mg/dL (0.6-1.3); GLUCOSE 108 mg/dL (74-106); POTASSIUM 3.8 mmol/L (3.5-5.1); SODIUM SERUM 136 mmol/L (136-145); UREA NITROGEN, BLOOD 18 mg/dL (7-18)
[2020-07-02] MEDS ORDERED: CYCL10TA9 PO (16:56)
[2020-07-02] MEDS ORDERED: GABA600T12 PO (16:56)
[2020-07-02] MEDS ORDERED: BUPR1FIL SL (16:56)
[2020-07-02] MEDS ORDERED: METH-406 PO (16:56)
[2020-07-02] MEDS ORDERED: ASPI-1169 PO (16:56)
--- NOTE | 2020-07-02 17:13 | NUR ---
COVID SWAB OBTAINED AND SENT TO LAB.
[2020-07-02 17:58] LABS: LYMPHOCYTES % (MANUAL) 15 % (16-48); MONOCYTES % (MANUAL) 3 % (0-11.0); NEUTROPHILS % (MANUAL) 82 (42-76)
[2020-07-02 18:10] LABS: MAGNESIUM 2.4 mg/dL (1.8-2.4)
[2020-07-02] MEDS ORDERED: GABAPENTIN 300 MG CAPSULE ONE (18:43)
[2020-07-02] MEDS ORDERED: LORAZEPAM 1 MG TABLET ONE (18:43)
--- NOTE | 2020-07-02 18:56 | NUR ---
CALLED [facility] HEALTH AND PHYSICAL EDUCATION PROFESSOR PAGED.
[2020-07-02] MEDS ORDERED: GABAPENTIN 100 MG CAPSULE PO ONE (19:00)
[2020-07-02] MEDS ORDERED: LORAZEPAM 1 MG TABLET PO ONE (19:00)
--- NOTE | 2020-07-02 19:08 | NUR ---
REPORT GIVEN TO ANA ORTEGA FOR AMANDA.
--- NOTE | 2020-07-02 19:20 | NUR ---
DR FOSTER AT BEDSIDE FOR EVAL
[2020-07-02] MEDS ORDERED: ACETAMINOPHEN 325 MG TABLET PO PRN (19:30)
[2020-07-02] MEDS ORDERED: HYDROCODONE/APAP 5/325MG TABLET PO PRN (19:30)
[2020-07-02] MEDS ORDERED: Z GUARD REMEDY 2 OZ OINT TP PRN (19:30)
[2020-07-02] MEDS ORDERED: CYCLOBENZAPRINE 10 MG TABLET PO PRN (19:30)
[2020-07-02] MEDS ORDERED: MAGNESIUM HYDROXIDE 30 ML UDC PO PRN (19:30)
[2020-07-02] MEDS ORDERED: TEMAZEPAM 15 MG CAPSULE PO PRN (19:30)
[2020-07-02] MEDS ORDERED: MAG HYDROX/AL HYDROX/SIMETH 30 ML UDC PO PRN (19:30)
[2020-07-02] MEDS ORDERED: ONDANSETRON HCL/PF 4 MG/2 ML VIAL IVP PRN (19:30)
--- NOTE | 2020-07-02 19:33 | NUR ---
PT UNABLE TO URINATE AT THIS TIME. AWARE
--- NOTE | 2020-07-02 20:17 | NUR ---
REPORT GIVEN TO ANA GRIFFITH FOR AMANDA
[2020-07-02] MEDS ORDERED: ASPIRIN 81 MG TAB.CHEW PO ONE (20:30)
[2020-07-02 20:33] VITALS: BP 96/54
--- NOTE | 2020-07-02 20:38 | NUR ---
PT TRANSFERRED TO ROOM VIA ACLS PROTOCOL
[2020-07-02 20:47] VITALS: BP 96/54
--- NOTE | 2020-07-02 20:47 | NUR ---
ADMISSION 45 years old male admitted for chest pain. Patient is A/O x4. Skin intact. Sinus rhythm HR 88 in the Tele monitor, BP low in 90's. Received Ativan for anxiety prior arrival to unit, appears calm, reports chest pressure but no facial grimace, no moaning and sleepy. Fall precaution maintained.
[2020-07-03] VITALS: BP 102/6
[2020-07-03 00:42] VITALS: BP 102/66
[2020-07-03] MEDS: MORPHINE SULFATE INJ 2 MG/ML DISP.SYRIN IV PRN ×4 (01:52→21:32)
--- NOTE | 2020-07-03 01:56 | NUR ---
CHEST PAIN Patient in bed, eating sandwich. Reports pain, pointing in his lateral chest. Denies N/V. Sinus rhythm in the Tele monitor. Admitted for chest pain. No c/o headache or dizziness. Noted some involuntary movements BUE, BLE, per patient jerking movements is not new to him. PRN Morphine given, will reassess. Fall precaution maintained.
[2020-07-03 04:00] VITALS: BP 91/63
[2020-07-03 04:53] VITALS: BP 91/63
--- NOTE | 2020-07-03 06:23 | NUR ---
MOLDER SWEEP: END OF SHIFT REPORT Patient is A/O x4. Tolerating room air. Sinus rhythm in the Tele monitor HR 90. Lateral chest pressure managed with PRN Morphine with relief. Denies SOB. Troponin (-) Plan for Cardio consult. Fall precaution maintained. Will endorse to oncoming RN.
[2020-07-03 07:30] LABS: BASOPHILS # (AUTO) 0.1 /CMM (0.0-0.2); BASOPHILS % (AUTO) 0.9 % (0.0-2.0); HEMATOCRIT 31 % (39-51); HEMOGLOBIN 9.4 g/dL (13.5-17.5); LYMPHOCYTES # (AUTO) 1.2 /CMM (0.8-4.8); LYMPHOCYTES % (AUTO) 19.5 % (20.0-44.0); MEAN CORPUSCULAR HGB CONC 31 g/dl (31.0-36.0); MEAN CORPUSCULAR VOLUME 74 fL (80-96); MONOCYTES # (AUTO) 0.4 /CMM (0.1-1.30); MONOCYTES % (AUTO) 7.3 % (2.0-12.0); NEUTROPHILS # (AUTO) 4.3 /CMM (1.8-8.9); NEUTROPHILS % (AUTO) 70.3 % (43.0-81.0); PLATELET COUNT (AUTO) 324 /CMM (150-450); RED BLOOD CELL COUNT(AUTO) 4.13 MIL/uL (4.5-6.0)
[2020-07-03] MEDS: PANTOPRAZOLE 40 MG TABLET.DR PO SCH (07:30)
--- NOTE | 2020-07-03 07:44 | NUR ---
INTERNATIONAL RELATIONS TEACHER OPENING NOTES BEDSIDE ENDORSEMENT DONE. PATIENT IS IN BED, AWAKE AND VERBALLY RESPONSIVE. A/O X4, ABLE TO MAKE NEEDS KNOWN. BREATHING EVEN AND UNLABORED IN ROOM AIR, NO ACUTE DISTRESS. ON TELE MONITORING, READING OF SR, HR IN THE 80'S, NO CARDIAC DISTRESS NOTED. IV LINE ON LAC #18 INTACT AND PATENT. SAFETY PRECAUTIONS IN PLACE: BED LOCKED AND ON LOWEST POSITION, SR UP X2, CALL LIGHT W/IN REACH. WILL CONTINUE TO MONITOR.
[2020-07-03 07:54] LABS: CALCIUM, SERUM 8.2 mg/dL (8.5-10.1); CREATININE 0.7 mg/dL (0.6-1.3); MAGNESIUM 2.2 mg/dL (1.8-2.4); PHOSPHORUS 3.1 mg/dL (2.5-4.9); POTASSIUM 3.5 mmol/L (3.5-5.1)
[2020-07-03 08:13] LABS: THYROID STIMULATING HORMONE 1.267 uIU/mL (0.358-3.74)
[2020-07-03] MEDS: ASPIRIN 81 MG TAB.CHEW PO SCH (09:08)
[2020-07-03] MEDS: GABAPENTIN 100 MG CAPSULE PO SCH ×3 (09:08→16:22)
[2020-07-03] MEDS: METHOCARBAMOL (750MG) 750 MG TABLET PO SCH ×3 (09:08→16:22)
[2020-07-03 10:21] LABS: EOSINOPHILS % (MANUAL) 1 % (0-4); LYMPHOCYTES % (MANUAL) 16 % (16-48); MONOCYTES % (MANUAL) 7 % (0-11.0); NEUTROPHILS % (MANUAL) 76 (42-76)
--- NOTE | 2020-07-03 18:50 | NUR ---
DUST HANDLER CLOSING NOTES PATIENT IS IN BED, AWAKE AND VERBALLY RESPONSIVE. A/O X4, ABLE TO MAKE NEEDS KNOWN. BREATHING EVEN AND UNLABORED IN ROOM AIR, NO ACUTE DISTRESS. ON TELE MONITORING, READING OF SR, HR IN THE MID 80'S, NO CARDIAC DISTRESS NOTED. IV LINE ON LAC #18 INTACT AND PATENT. RECORDS OBTAINED FROM [facility] PER CHARGE NURSE. SAFETY PRECAUTIONS MAINTAINED: BED LOCKED AND ON LOWEST POSITION, SR UP X2, CALL LIGHT W/IN REACH. WILL ENDORSE TO SHIPWRIGHT SUPERVISOR RN FOR AMANDA.
--- NOTE | 2020-07-03 19:50 | NUR ---
REEL SYSTEM OPERATOR OPENING NOTES RECEIVED PATIENT IN BED ALERT AND ORIENTED X 4. AMBULATORY VERBALLY RESPONSIVE AND ABLE TO FOLLOW DIRECTIONS. BREATHING REGULAR AND UNLABORED ON ROOM AIR. LEFT AC G18 IV LINE INTACT AND PATENT, FLUSHING WELL WITH NO BLEEDING OR S/S OF INFILTRATION NOTED. ON CARDIAC MONITORING WITH NSR AT 87bpm. DENIES SUICIDAL IDEATION, COMPLAINED OF 3/10 CHEST PAIN, NON-PHARMACOLOGICAL INTERVENTIONS PROVIDED. BED LOW AND LOCKED ON SEMI FOWLERS POSITION. CALL LIGHT IN REACH. WILL CONTINUE TO MONITOR.
[2020-07-03 20:00] VITALS: BP 104/61
--- NOTE | 2020-07-03 21:45 | NUR ---
CCNP NOTES COMPLAINED OF 9/10 RADIATING CHEST PAIN, MORPHINE 4MG GIVEN VIA IVP. NON-PHARMACOLOGICAL INTERVENTIONS PROVIDED. VITAL SIGNS WNL. WILL CONTINUE TO MONITOR.
[2020-07-04] VITALS: BP 107/62
[2020-07-04] MEDS: MORPHINE SULFATE INJ 2 MG/ML DISP.SYRIN IV PRN ×4 (01:27→16:17)
[2020-07-04 04:00] VITALS: BP 101/61
[2020-07-04] MEDS: PANTOPRAZOLE 40 MG TABLET.DR PO SCH (06:30)
[2020-07-04 06:41] LABS: CALCIUM, SERUM 8.5 mg/dL (8.5-10.1); CREATININE 0.7 mg/dL (0.6-1.3); MAGNESIUM 2.1 mg/dL (1.8-2.4); PHOSPHORUS 3.6 mg/dL (2.5-4.9); POTASSIUM 4.1 mmol/L (3.5-5.1)
--- NOTE | 2020-07-04 06:50 | NUR ---
EVP SALES CLOSING NOTES PATIENT IN BED ALERT AND ORIENTED X 4. AFEBRILE WITH NO S/S OF DISTRESS OBSERVED. LEFT AC G18 IV LINE PATENT AND FLUSHING WELL. MAINTAINED ON CARDIAC MONITORING WITH NSR AT 92bpm. COMPLAINED OF 3/10 CHEST PAIN, NON-PHARMACOLOGICAL INTERVENTIONS PROVIDED. BED LOW AND LOCKED ON SEMI FOWLERS POSITION. CALL LIGHT IN REACH. WILL ENDORSE TO MORNING SHIFT FOR AMANDA.
[2020-07-04 08:00] VITALS: BP 100/61
--- NOTE | 2020-07-04 08:00 | NUR ---
received call from dr. Charlton to keep pt npo for now, possible JO. primary nurse, drafting supervisor and pt informed.
--- NOTE | 2020-07-04 08:00 | NUR ---
RN Opening note Received patient in resting, AO x 4, able to responds all stimuli. Does no c/o pain or distress, skin is warm to touch keep clean/dry, intact IV site on left AC 18g with SL. Respiratory even and unlabored on room air O2sat 97%, no sob or respiratory distress observed. Kept locked bed with elevated HOB for ensure airway and aspiration precaution and lowest position for safety. Call light within reach, will continue to monitor.
[2020-07-04] MEDS: METHOCARBAMOL (750MG) 750 MG TABLET PO SCH ×3 (09:00→16:17)
[2020-07-04] MEDS ORDERED: CARVEDILOL 6.25 MG TABLET PO SCH (09:00)
[2020-07-04] MEDS: GABAPENTIN 100 MG CAPSULE PO SCH ×3 (09:00→16:17)
[2020-07-04 12:06] VITALS: BP 102/72
--- NOTE | 2020-07-04 13:06 | NUR ---
pt got agitated stating " I want to eat or I'm leaving now, i don't care about JO, ask doctor to schedule me for tomorrow." Dr. Charlton informed.
[2020-07-04] MEDS: ASPIRIN 81 MG TAB.CHEW PO SCH (13:37)
--- NOTE | 2020-07-04 16:43 | NUR ---
Patient transfer to [facility] and given report Carla/KM. Ambulance will bean picker patient at 1845, notified patient.
--- NOTE | 2020-07-04 17:00 | NUR ---
2 records coordinator picked up patient to the [facility] in stable condition.
--- NOTE | 2020-07-04 18:07 | NUR ---
RN Closing Note Patient in bed resting, does no appears pain or discomfort. Skin is warm to touch, keep clean/dry, intact IV line om left AC 18g. Respiratory even and unlabored on room. Patient going transfer to [facility] , will pickling drum operator 1845.
== END 2020-07-04 19:25 | disposition short-term general hospital (02) | DRG 203 ==
LOC: ER 15:45 → TELE 20:03
PROVIDERS: ADMIT Nurse Practitioner Acute Care; ATTEND Internal Medicine
DX: M94.0 Chondrocostal junction syndrome [Tietze] (principal); F41.9 Anxiety disorder, unspecified; Z59.0 Homelessness; Z95.2 Presence of prosthetic heart valve; I34.0 Nonrheumatic mitral (valve) insufficiency; Z87.19 Personal history of other diseases of the digestive system; F90.9 Attention-deficit hyperactivity disorder, unspecified type; Z79.82 Long term (current) use of aspirin; Z79.899 Other long term (current) drug therapy; G89.4 Chronic pain syndrome; F29 Unspecified psychosis not due to a substance or known physiological condition; Z98.890 Other specified postprocedural states; Z90.49 Acquired absence of other specified parts of digestive tract; F17.200 Nicotine dependence, unspecified, uncomplicated; Z82.49 Family history of ischemic heart disease and other diseases of the circulatory system
CPT/HCPCS: 36415; 71045-TC; 80048-TC; 80061-TC; 83735-TC; 83880; 84100-TC; 84443-TC; 84484-TC; 85025-TC; 87081-TC; 93307-TC; C9803; G0378; G0480; J2270

== ENCOUNTER 2020-09-26 06:24 | Emergency (ER) | payer OTHER ==
[~2020-09-26] VITALS: Ht 182.9 cm; Wt 77.1 kg
[~2020-09-26 06:24] MED LIST: ASPI-1169 PO; BUPR1FIL SL; CYCL10TA9 PO; GABA600T12 PO; METH-406 PO
[2020-09-26 06:25] VITALS: BP 151/79
== END 2020-09-26 06:58 | disposition home or self-care (01) ==
LOC: ER 06:25
DX: M54.2 Cervicalgia (principal); F90.9 Attention-deficit hyperactivity disorder, unspecified type; F17.200 Nicotine dependence, unspecified, uncomplicated; Z59.0 Homelessness; Z79.82 Long term (current) use of aspirin; Z79.899 Other long term (current) drug therapy

== ENCOUNTER 2021-02-26 02:04 | Emergency (ER) | payer OTHER ==
[~2021-02-26] VITALS: Ht 180.3 cm; Wt 79.4 kg
[2021-02-26 02:18] VITALS: BP 114/81
== END 2021-02-26 02:49 | disposition home or self-care (01) ==
LOC: ER 02:06
DX: M54.2 Cervicalgia (principal); F90.9 Attention-deficit hyperactivity disorder, unspecified type; F17.200 Nicotine dependence, unspecified, uncomplicated; Z59.0 Homelessness; Z79.82 Long term (current) use of aspirin; Z79.899 Other long term (current) drug therapy

== ENCOUNTER 2021-03-26 16:30 | Inpatient (IN) | payer OTHER ==
[~2021-03-26] VITALS: Ht 182.9 cm; Wt 81.8 kg
--- NOTE | 2021-03-26 17:14 | NUR ---
46 years old male presents to er by ambulance s/p syncope after smoking placed on contract forester, continuous pulse ox.
--- NOTE | 2021-03-26 19:10 | NUR ---
urine collected sent no acute changes.
[2021-03-26 19:55] LABS: BASOPHILS % (AUTO) 0.6 % (0.0-2.0); EOSINOPHILS % (AUTO) 1.2 % (0.0-6.0); HEMATOCRIT 40 % (39-51); HEMOGLOBIN 13.2 g/dL (13.5-17.5); LYMPHOCYTES # (AUTO) 1.4 K/uL (0.8-4.8); MEAN CORPUSCULAR HGB CONC 33 g/dl (31.0-36.0); MEAN CORPUSCULAR VOLUME 83 fL (80-96); MONOCYTES # (AUTO) 0.3 K/uL (0.1-1.30); MONOCYTES % (AUTO) 6.8 % (2.0-12.0); NEUTROPHILS # (AUTO) 2.8 K/uL (1.8-8.9); NEUTROPHILS % (AUTO) 61.4 % (43.0-81.0); PLATELET COUNT (AUTO) 219 K/uL (150-450); RED BLOOD CELL COUNT(AUTO) 4.77 MIL/uL (4.5-6.0); WHITE BLOOD COUNT (AUTO) 4.5 K/uL (4.3-11.0)
[2021-03-26 20:07] LABS: CALCIUM, SERUM 8.3 mg/dL (8.5-10.1); CARBON DIOXIDE 27 mmol/L (21-32); CHLORIDE 106 mmol/L (98-107); CREATININE 0.8 mg/dL (0.6-1.3); GLUCOSE 102 mg/dL (74-106); POTASSIUM 3.4 mmol/L (3.5-5.1); SODIUM SERUM 140 mmol/L (136-145); UREA NITROGEN, BLOOD 14 mg/dL (7-18)
[2021-03-26 20:12] LABS: MAGNESIUM 1.9 mg/dL (1.8-2.4)
[2021-03-26 20:13] LABS: ALANINE AMINOTRANSFERASE 33 U/L (12-78); ALBUMIN 3.6 g/dL (3.4-5.0); ALKALINE PHOSPHATASE 78 U/L (46-116); ASPARTATE AMINOTRANSFERASE 24 U/L (15-37); BILIRUBIN,DIRECT 0.2 mg/dL (0.0-0.2); BILIRUBIN,TOTAL 0.6 mg/dL (0.2-1.0); TOTAL PROTEIN, SERUM 6.8 g/dL (6.4-8.2)
--- NOTE | 2021-03-26 21:05 | NUR ---
JERONIMOID SWABBED, SENT TO LAB.
[2021-03-26] MEDS ORDERED: ACETAMINOPHEN 325 MG TABLET PO PRN (21:30)
[2021-03-26] MEDS ORDERED: ONDANSETRON HCL/PF 4 MG/2 ML VIAL IVP PRN (21:30)
[2021-03-26] MEDS ORDERED: DOCUSATE SODIUM 100 MG CAPSULE PO PRN (21:30)
[2021-03-26] MEDS ORDERED: NITROGLYCERIN 0.4 MG/TAB BOTTLE SL PRN (21:30)
[2021-03-26] MEDS ORDERED: MAG HYDROX/AL HYDROX/SIMETH 30 ML UDC PO PRN (21:30)
[2021-03-26] MEDS ORDERED: ASPIRIN 81 MG TAB.CHEW PO ONE (22:30)
--- NOTE | 2021-03-26 23:13 | NUR ---
VELASQUEZ SOLIS TO RN, PT TRANSFERED PER ACLS PROTOCOL
[2021-03-26 23:20] VITALS: BP 127/91
[2021-03-26] MEDS: SIMVASTATIN 20 MG TABLET PO SCH (23:20)
--- NOTE | 2021-03-26 23:20 | NUR ---
COMMUNITY FACILITATORIT SUPPORT MANAGER NOTE PATIENT ARRIVED TO ROOM, ALERT/ORIENTED X 4, PT ABLE TO MAKE NEEDS KNOWN. PT STABLE ON RA, NO S/S OF DISTRESS OR SOB NOTED, BREATHING EVEN AND UNLABORED. PT REPORTING PAIN IN THE MIDDLE OF HIS CHEST AND NECK. LEFT WRIST IV ACCESS #20G INTACT AND FLUSHING WELL. PATIENT BELONGINGS DOCUMENTED AND ACCOUNTED FOR. ORIENTED PT TO ROOM AND HOW TO USE CALL LIGHT. SAFETY MEASURES IN PLACE: BED LOCKED IN LOWEST POSITION, SIDE RAILS UP X 2, BED ALARM ON. WILL CONTINUE TO MONITOR
[2021-03-26] MEDS ORDERED: SIMVASTATIN 10 MG TABLET ONE (23:21)
[2021-03-26] MEDS ORDERED: ASPIRIN 81 MG TAB.CHEW ONE (23:21)
[2021-03-27] MEDS ORDERED: AZITHROMYCIN 250 MG TABLET PO SCH
[2021-03-27] MEDS: MORPHINE SULFATE INJ 2 MG/ML DISP.SYRIN IV PRN ×4 (00:37→17:01)
--- NOTE | 2021-03-27 01:05 | NUR ---
EDUCATION DEAN NOTES PATIENT VERY ANXIOUS AND RESTLESS. NOTIFIED GARY ONEIL NP WITH NEW ORDER FOR ONE TIME DOSE OF ATIVAN 1 MG IVP. ORDER READBACK AND CONFIRMED. ORDER CARRIED OUT. WILL CONTINUE TO MONITOR
[2021-03-27] MEDS ORDERED: LORAZEPAM INJ 2 MG/ML VIAL IV ONE (01:15)
[2021-03-27 04:00] VITALS: BP 119/69
--- NOTE | 2021-03-27 06:52 | NUR ---
OR NURSE MANAGER CLOSING NOTES PATIENT RESTING IN BED, ALERT/ORIENTED X 3, ABLE TO MAKE NEEDS KNOWN. PT STABLE ON RA, NO S/S OF DISTRESS OR SOB NOTED, BREATHING EVEN AND UNLABORED. NO COMPLAINTS OF CHEST PAIN AT THIS TIME. LEFT WRIST IV ACCESS INTACT AND FLUSHING WELL. MEDICATIONS GIVEN ORDERED. PT NEEDS MET THROUGHOUT SHIFT. WILL DELIVER HOME MEDS TO PHARMACY. SAFETY MEASURES IN PLACE: BED LOCKED IN LOWEST POSITION, SIDE RAILS UP X 2, BED ALARM ON. WILL ENDORSE TO DAY SHIFT NURSE FOR CONTINUITY OF CARE.
[2021-03-27 07:14] LABS: BASOPHILS % (AUTO) 0.9 % (0.0-2.0); EOSINOPHILS % (AUTO) 2.8 % (0.0-6.0); HEMATOCRIT 43 % (39-51); LYMPHOCYTES # (AUTO) 1.9 K/uL (0.8-4.8); LYMPHOCYTES % (AUTO) 43.2 % (20.0-44.0); MEAN CORPUSCULAR HGB CONC 33 g/dl (31.0-36.0); MEAN CORPUSCULAR VOLUME 84 fL (80-96); MONOCYTES # (AUTO) 0.3 K/uL (0.1-1.30); MONOCYTES % (AUTO) 7.1 % (2.0-12.0); PLATELET COUNT (AUTO) 226 K/uL (150-450); RED BLOOD CELL COUNT(AUTO) 5.13 MIL/uL (4.5-6.0); WHITE BLOOD COUNT (AUTO) 4.4 K/uL (4.3-11.0)
[2021-03-27] MEDS ORDERED: GABA-532 PO (07:31)
[2021-03-27] MEDS ORDERED: MULT-447 PO (07:31)
[2021-03-27] MEDS ORDERED: CHOL100062 PO (07:31)
[2021-03-27] MEDS ORDERED: FURO40TA5 PO (07:31)
[2021-03-27] MEDS ORDERED: ALPR0.25 PO (07:31)
[2021-03-27] MEDS ORDERED: ASCO-352 PO (07:31)
[2021-03-27] MEDS ORDERED: AMPH20TA3 PO (07:31)
[2021-03-27 07:53] LABS: ALBUMIN 3.5 g/dL (3.4-5.0); BILIRUBIN,TOTAL 0.6 mg/dL (0.2-1.0); CALCIUM, SERUM 8.5 mg/dL (8.5-10.1); CREATININE 0.9 mg/dL (0.6-1.3); MAGNESIUM 2.1 mg/dL (1.8-2.4); PHOSPHORUS 3.7 mg/dL (2.5-4.9); POTASSIUM 3.7 mmol/L (3.5-5.1); TOTAL PROTEIN, SERUM 6.9 g/dL (6.4-8.2)
--- NOTE | 2021-03-27 07:59 | NUR ---
WIC SITE COORDINATOR OPENING NOTES RECEIVED PATIENT IN BED, AWAKE, A/O X4. PATIENT ON ROOM AIR; BREATHING EVEN AND UNLABORED; NO SOB AT THIS TIME. TELE MONITOR WITH A READING OF SR 92. COMPLAINING OF PAIN IN HIS NECK; NIGHT NURSE GAVE PRN MORPHINE. L WRIST ACCESS G #20 PRESENT AND INTACT, SL. SAFETY PRECAUTIONS IN PLACE; BED IN LOW POSITION AND LOCKED, RAILS UP X2, CALL LIGHT WITHIN REACH. WILL CONTINUE TO MONITOR PATIENT.
[2021-03-27 08:03] VITALS: BP 170/92
[2021-03-27 08:05] LABS: THYROID STIMULATING HORMONE 1.728 uIU/mL (0.358-3.74)
[2021-03-27] MEDS: NICOTINE PATCH (14MG) 14 MG PATCH.TD24 TD SCH (08:16)
[2021-03-27] MEDS: ASPIRIN 81 MG TAB.CHEW PO SCH (08:16)
[2021-03-27] MEDS: ENOXAPARIN SODIUM 60 MG/0.6 ML DISP.SYRIN SQ SCH (08:19)
[2021-03-27] MEDS: LORAZEPAM 1 MG TABLET PO PRN ×2 (08:37→22:04)
--- NOTE | 2021-03-27 08:38 | NUR ---
PROPERTY CLAIM REP NOTES PATIENT AGITATED AND REQUESTING ATIVAN. BARRY BRITO ORDER PRN ATIVAN 1 MG ADMINISTERED. WILL REASSESS.
--- NOTE | 2021-03-27 08:56 | NUR ---
SUPERVISOR TYPE BAR AND SEGMENT NOTES RE-CHECKED PATIENTS BP. BP 122/75 HR 85
[2021-03-27 08:57] VITALS: BP 122/75
[2021-03-27] MEDS ORDERED: LABETALOL 20 MG/4 ML VIAL IV PRN (09:00)
[2021-03-27] MEDS ORDERED: hydrALAZINE HCL IV 20 MG VIAL IV PRN (09:00)
--- NOTE | 2021-03-27 09:07 | NUR ---
SS consult received over the weekend for homelessness. SW will follow up at a later time.
[2021-03-27] MEDS ORDERED: GABAPENTIN 100 MG CAPSULE PO SCH ×2 (10:00→13:00)
[2021-03-27] MEDS ORDERED: FUROSEMIDE 20 MG TABLET PO SCH (10:00)
[2021-03-27] MEDS: METOPROLOL SUCCINATE 50 MG TAB.SR.24H PO SCH (10:27)
[2021-03-27] MEDS: METHOCARBAMOL (500MG) 500 MG TABLET PO PRN ×2 (10:28→20:10)
[2021-03-27 12:00] VITALS: BP 110/68
--- NOTE | 2021-03-27 12:15 | NUR ---
INSTRUMENTATION INSTRUCTOR NOTES PATIENT COMPLAINING OF PAIN IN THE NECK 8 OUT OF 10. REQUESTING PAIN MEDICATION. PRN MORPHINE ADMINISTERED. WILL REASSESS.
[2021-03-27 16:16] VITALS: BP 116/74
[2021-03-27] MEDS: GABAPENTIN 300 MG CAPSULE PO SCH (16:52)
[2021-03-27] MEDS: CYCLOBENZAPRINE 10 MG TABLET PO PRN (18:01)
[2021-03-27 20:00] VITALS: BP 124/67
[2021-03-27] MEDS: oxyCODONE IR immediate release 5 MG PO PRN (21:07)
[2021-03-27] MEDS: SIMVASTATIN 20 MG TABLET PO SCH (21:07)
[2021-03-27] MEDS: AZITHROMYCIN 250 MG TABLET PO SCH (21:07)
--- NOTE | 2021-03-27 23:20 | NUR ---
REQUEST FOR RECORDS FAXED WITH COFNIRMATION TO [facility].
[2021-03-28] VITALS: BP 118/74
--- NOTE | 2021-03-28 00:42 | NUR ---
spoke with altagracia miranda patient complaints of neck pain requesting something topical to address pain reports sai massey helps. altagracia menjivar she will place an order. Addendum: 03/28/21 at 0054 by JEISON HIGGINBOTHAM RN spoke with powerhouse helper jina guadalupe. pharmacy night locker does not have sai massey so wont be available till pharmacy returns in am.
[2021-03-28] MEDS ORDERED: METHYL SALICYLATE/MENTHOL 28GM 28 GM TUBE TP PRN (01:00)
[2021-03-28] MEDS: MORPHINE SULFATE INJ 2 MG/ML DISP.SYRIN IV PRN ×4 (02:28→20:52)
[2021-03-28 04:00] VITALS: BP 107/59
[2021-03-28] MEDS: METHOCARBAMOL (500MG) 500 MG TABLET PO PRN (04:32)
--- NOTE | 2021-03-28 06:51 | NUR ---
SURGERY MANAGER CLOSING NOTES PATIENT RESTING IN BED, SEEN WITH EYES CLOSED. PT STABLE ON RA, NO S/S OF DISTRESS OR SOB NOTED, BREATHING EVEN AND UNLABORED. RIGHT HAND IV PATENT AND FLUSHING. SAFETY MEASURES IN PLACE: BED LOCKED IN LOWEST POSITION, SIDE RAILS UP X 2, BED ALARM ON. WILL ENDORSE TO DAY SHIFT NURSE FOR CONTINUITY OF CARE.
--- NOTE | 2021-03-28 07:30 | NUR ---
GOLF TOURNAMENT CONSULTANT NOTES PT IN BED, ASLEEP, EASILY AROUSABLE BY VERBAL STIMULI, ALERT AND ORIENTED, NO COMPLAINT OF PAIN AT THIS TIME, BREATHING PATTERN NORMAL, CALL LIGHT WITHIN REACH, WILL CONTINUE TO MONITOR.
[2021-03-28 08:24] VITALS: BP 113/66
[2021-03-28] MEDS ORDERED: ASPIRIN 81 MG TAB.CHEW PO SCH (09:00)
[2021-03-28] MEDS: GABAPENTIN 300 MG CAPSULE PO SCH ×3 (09:26→16:46)
[2021-03-28] MEDS: FUROSEMIDE 40 MG TABLET PO SCH (09:26)
[2021-03-28] MEDS: ASPIRIN 81 MG TAB.CHEW PO SCH (09:26)
[2021-03-28] MEDS: CHOLECALCIFEROL 1,000 UNIT TABLET (VIT D3) PO SCH (09:27)
[2021-03-28] MEDS: MULTIVIT W/MINERALS 1 TAB TABLET PO SCH (09:27)
[2021-03-28] MEDS: ASCORBIC ACID 500 MG TABLET PO SCH (09:27)
[2021-03-28] MEDS: NICOTINE PATCH (14MG) 14 MG PATCH.TD24 TD SCH (09:27)
[2021-03-28] MEDS: ENOXAPARIN SODIUM 60 MG/0.6 ML DISP.SYRIN SQ SCH (09:46)
[2021-03-28] MEDS: METOPROLOL SUCCINATE 50 MG TAB.SR.24H PO SCH (09:53)
[2021-03-28] MEDS ORDERED: HYDROCODONE/APAP 5/325MG TABLET PO PRN (10:30)
--- NOTE | 2021-03-28 11:24 | NUR ---
TIN CUTTER NOTES PT SEEN AND EXAMINED BY DR. FOSTER, PLAN OF CARE DISCUSSED WITH PT, VERBALIZED UNDERSTANDING, KEPT WARM AND COMFORTABLE IN BED, TOLERATES CURRENT DIET, WITH GOOD PO INTAKE.
[2021-03-28 12:00] VITALS: BP 123/68
[2021-03-28 16:00] VITALS: BP 126/78
[2021-03-28] MEDS: LORAZEPAM 1 MG TABLET PO PRN (18:07)
--- NOTE | 2021-03-28 18:46 | NUR ---
FLOW COORDINATOR CLOSING PATIENT ON BED, ALERT AND ORIENTED x4. ABLE TO MAKE NEEDS KNOWN.PAIN MEDS GIVEN FOR PAIN MANAGEMENT. EXTERNAL PROJECT CONTROL OFFICER READS NSR @ 96BPM. PATIENT SAFETY MEASURES IN PLACE. BED IN LOWEST LOCKED POSITION, SIDE RAILS UP X2, CALL LIGHT WITHIN REACH, BED ALARMS ON. WILL ENDORSE TO THE NEXT SHIFT FOR AMANDA.
[2021-03-28 20:00] VITALS: BP 138/68
[2021-03-28] MEDS: CYCLOBENZAPRINE 10 MG TABLET PO PRN (20:51)
[2021-03-28] MEDS: AZITHROMYCIN 250 MG TABLET PO SCH (20:51)
[2021-03-28] MEDS: SIMVASTATIN 20 MG TABLET PO SCH (20:51)
--- NOTE | 2021-03-28 21:30 | NUR ---
RECEIVED REPORT FROM ANA MCHUGH FOR AMANDA. WILL CONTINUE WITH PLAN OF CARE.
[2021-03-29] VITALS: BP 116/77
[2021-03-29] MEDS: MORPHINE SULFATE INJ 2 MG/ML DISP.SYRIN IV PRN ×4 (03:09→17:14)
--- NOTE | 2021-03-29 03:09 | NUR ---
RN PAIN PT C/O ACHING PAIN IN MEDIAL CHEST/NECK, RATED 9/10 ON PAIN SCALE. VSS. PER PT REQUEST, ADMINISTERED MORPHINE SULFATE 2 MG IV Q4H PRN FOR CHEST PAIN. WILL REASSESS PT IN 30 MINS.
[2021-03-29 04:00] VITALS: BP 108/69
[2021-03-29] MEDS: LORAZEPAM 1 MG TABLET PO PRN (05:29)
--- NOTE | 2021-03-29 06:29 | NUR ---
CERTIFIED ALCOHOL COUNSELOR CLOSING NOTE PT IS IN BED WITH EYES CLOSED, AROUSABLE TO STIMULATION. A/O X4. PT IS STABLE ON ROOM AIR. NO SOB OR S/S OF RESPIRATORY DISTRESS NOTED. PT ON EXTERNAL MANAGER SUPPLY CHAIN PLANNING READING SR AT 94 BPM. IV ACCESS IS INTACT, PATENT, AND FLUSHING WELL. ALL NEEDS HAVE BEEN MET. PAIN MANAGEMENT ADMINISTERED PER ORDER. SAFETY PRECAUTIONS MAINTAINED AT ALL TIMES. BED IN LOWEST LOCKED POSITION, HOB ELEVATED, SIDE RAILS UP X2. CALL LIGHT AND TABLE WITHIN REACH. WILL ENDORSE TO ONCOMING NURSE FOR AMANDA.
--- NOTE | 2021-03-29 07:40 | NUR ---
FOREST WORKER OPENING NOTES PT AWAKE, A/OX4, EATING BREAKFAST AT THIS TIME. DENIES ANY PAIN OR DISCOMFORT AT THIS TIME. RESPIRATIONS EVEN AND UNLABORED, ON ROOM AIR. IV ACCESS TO R-HAND #20 INTACT AND PATENT. SAFETY MEASURES IN PLACE, BED IN LOWEST LOCKED POSITION, S/R UPX2, CALL LIGHT WITHIN EASY REACH. PT IN NO ACUTE DISTRESS. WILL CONTINUE TO MONITOR.
[2021-03-29 08:00] VITALS: BP 115/74
[2021-03-29] MEDS: MULTIVIT W/MINERALS 1 TAB TABLET PO SCH (09:14)
[2021-03-29] MEDS: CHOLECALCIFEROL 1,000 UNIT TABLET (VIT D3) PO SCH (09:14)
[2021-03-29] MEDS: ASPIRIN 81 MG TAB.CHEW PO SCH (09:14)
[2021-03-29] MEDS: GABAPENTIN 300 MG CAPSULE PO SCH ×3 (09:14→17:12)
[2021-03-29] MEDS: ASCORBIC ACID 500 MG TABLET PO SCH (09:15)
[2021-03-29] MEDS: NICOTINE PATCH (14MG) 14 MG PATCH.TD24 TD SCH (09:15)
[2021-03-29] MEDS: FUROSEMIDE 40 MG TABLET PO SCH (09:15)
[2021-03-29] MEDS: ENOXAPARIN SODIUM 60 MG/0.6 ML DISP.SYRIN SQ SCH (09:27)
[2021-03-29] MEDS: METOPROLOL SUCCINATE 50 MG TAB.SR.24H PO SCH ×2 (10:00→10:32)
--- NOTE | 2021-03-29 15:30 | NUR ---
"Derrick Hand consult: family services worker consult requested for homelessness. Patient is a 46-year-old, male. SW met with patient at his bedside in the med-surg unit. Patient was alert and oriented x4. Patient was calm and resting. Patient appeared well-groomed. Patient stated that he has been homeless since his surgery which was performed August 2020. Patient stated that he has been living on the street and collapsed due to dehydration. Patient is ambulatory and independent with his ADL's. Patient stated that he is currently receiving food stamps and General Relief as a source of income. Patient stated that he has a history of methamphetamine use and reported that his last use was 3 days ago. Patient reported intermittent methamphetamine use and stated that he was recently at [facility] this month. SW assessed patient's history of mental illness. Patient reported history of ADHD. Patient denied suicidal or homicidal ideation. Patient requested substance use rehabilitation. SW contacted [facility] with the patient at his bedside and patient spoke to [place], , for the assessment. Patient was unable to complete the assessment as the phone line had cut. ILAN called back [facility] and was notified by the marketing secretary that [place] was speaking to other patients and [facility] would follow up at a later time to complete assessment. ILAN notified charger operator, Diane of this update. printed circuit boards solder leveler, Diane notified medical case worker Lulú to follow up with d/c plan as this SW had to leave. printed circuit boards solder leveler, Diane and SATHYA Chino to follow up with D/C plan. ILAN offered the patient homeless and substance use resources. Patient accepted the resources and thanked ILAN. ILAN filed homeless waiver in the patient's chart as D/C plan has not been determined at this time. staff development coordinator to follow up with homeless waiver. PLAN: Diana Pisano RN and SATHYA Chino will continue to follow up with D/C plan to [facility]. SS will remain available as needed at a later time. RESOURCES: Year-round shelters: [place] [facility] [address] [place] [address] ; [facility] [address] [place] [address]; [facility] [id number] [facility] [address] SPA 4 | [facility] Provider: [facility] Address: [address], [address] # of Beds: 48 Population Served: [facility] [place] Provider: First to Serve Address: [address] [facility], [address] # of Beds: 73 Population Served: Ar[facility]urd [facility] 6 | [facility] Provider: [facility] Address: [address] [facility], [address] # of Beds: 63 Population Served: Arthurd SPA 3 | [facility] Provider: [facility] [place] Address: [address] [facility] [address] # of Beds: 75 Population Served: Arthurd SPA 8 | [facility] Provider: [facility] [place] Address: [address] [facility] [address] # of Beds: 80 Population Served: Arthurd [facility] 1 | [facility] Provider: [facility] [place] Address: [address] [place] [address], [address] # of Beds: 85 Population Served: Arthurd [facility] 2 | [facility] Provider: [facility] Address: Confidential (please call for location) # of Beds: 52 Population Served: Arthurd [facility] 4 | [facility] Provider: [facility] Address: [address] [facility], [address] # of Beds: 49 Population Served: Yuly [facility] Provider: First To Serve Address: [address] [facility], [address] # of Beds: 27 Population Served: Arthur Hygiene: [place] [facility]: [address] [place] ; [facility] [place] [facility] [address] [address] [facility] ; [facility] [address] . Food Resources: [place] [facility] at [facility]- [address] [place]; Meet Each Need with Dignity ([facility]) [address] [place]; [facility] [address] [facility]; [facility] [address] [place]. Mental Health resources provided: PSYCHIATRIC [address] [place] [address] ; [facility] [place] [address] [address] [facility] [address], [place], [place] [phone] ; [facility] [address], [place] [phone] ; [facility] [address] [place], [place] [address] Healthcare Clinics: [facility] [address] [facility], [address] [place]. [place] ; [facility] [address] [facility] [address] [place] [address]; [facility] [address] [facility]. [place] [address] [phone] Substance use resources provided included: [facility] Substance Abuse Self-Helpline (SAS) ; [facility] [address] [facility]. [place] [address] ; [facility] [address] [facility] [address] ; [facility] [address] [facility] [phone] ; [facility] 49[address] [facility] [address] ; [facility] 909 [facility] [phone] ; [facility] [place]; [facility] [place]; [facility] [place]; Alcoholics Anonymous -SFV"
[2021-03-29 16:32] VITALS: BP 126/76
--- NOTE | 2021-03-29 18:37 | NUR ---
RN CLOSING NOTES PT RESTING IN BED, AWAKE, A/O X4, WATCHING TV. DENIES ANY DISCOMFORT AT THIS TIME. BREATHING EVEN AND UNLABORED, ON ROOM AIR. AMBULATES WITH STEADY GAIT. IV ACCESS ON R-HAND #20 INTACT, PATENT AND FLUSHES WELL. PT IN NO ACUTE DISTRESS. SAFETY MEASURES IN PLACE: BED IN LOWEST LOCKED POSITION, S/R UP X2, CALL LIGHT AND TABLE WITHIN EASY REACH. WILL ENDORSE TO NEXT SHIFT NURSE.
[2021-03-29] MEDS: CYCLOBENZAPRINE 10 MG TABLET PO PRN (18:50)
--- NOTE | 2021-03-29 19:30 | NUR ---
MS RN NOTES RECEIVED RESTING COMFORTABLY ON BED,BREATHING EASY,NO SOB,HOMELESS,AWAITING FOR PLACEMENT.DENIES CHEST PAIN.SALINE LOCK RIGHT HAND INTACT AND PATENT.CLAIMED HE'S HUNGRY,SNACKS PROVIDED.AMBULATE WITH STEADY GAIT.CALL LIGHT IN REACH,NEEDS ANTICIPATED.
[2021-03-29 20:02] VITALS: BP 126/80
[2021-03-29 20:04] VITALS: BP 126/80
[2021-03-29] MEDS: SIMVASTATIN 20 MG TABLET PO SCH (21:32)
[2021-03-29] MEDS: AZITHROMYCIN 250 MG TABLET PO SCH (21:32)
[2021-03-29] MEDS: oxyCODONE IR immediate release 5 MG PO PRN (21:33)
--- NOTE | 2021-03-29 21:33 | NUR ---
MS RN NOTES PAIN MANAGEMENT C/O GENERALIZED PAIN 9/10 ON PAIN SCALE,MEDICATED WITH OXY IR 15MG PO FOR SEVERE PAIN.
[2021-03-30] MEDS: LORAZEPAM 1 MG TABLET PO PRN (01:10)
--- NOTE | 2021-03-30 01:10 | NUR ---
MS RN NOTES FEELING ANXIOUS,ATIVAN 1 MG PO GIVEN ORDERED
[2021-03-30] MEDS: METHOCARBAMOL (500MG) 500 MG TABLET PO PRN (01:58)
[2021-03-30] MEDS: MORPHINE SULFATE INJ 2 MG/ML DISP.SYRIN IV PRN ×4 (01:58→17:45)
--- NOTE | 2021-03-30 01:58 | NUR ---
MS RN NOTES PAIN MANAGEMENT C/O GENERALIZED PAIN 9/10 ON OAIN SCALE,MEDICATED WITH MORPHINE 2 MG IV PER PATIENT REQUEST.
--- NOTE | 2021-03-30 01:58 | NUR ---
MS RN NOTES C/O MUSCLE SPASMS,ROBAXIN 500MG PO GIVEN PER PATIENT REQUEST.
--- NOTE | 2021-03-30 06:11 | NUR ---
MS RN NOTES ON BED SOUND ASLEEP WITH PAIN MANAGEMENT,BREATHING REGULAR,NOT IN ANY FORM OF DISTRESS.SALINE LOCK REMAINS PATENT ON RIGHT ARM.POSSIBLE DISCHARGE,CASE MANAGEMENT FOR PLACEMENT.IN NO ACUTE DISTRESS
[2021-03-30 08:00] VITALS: BP 120/77
--- NOTE | 2021-03-30 08:12 | NUR ---
RN OPENING NOTES RECEIVED PATIENT AWAKE IN BED. ALERT AND ORIENTED X 4. NO SIGNS OR SYMPTOMS OF DISTRESS NOTED. PATIENT IS ABLE TO MAKE NEEDS KNOWN. IV ACCESS RHAND #20 PATENT AND INTACT. SAFETY MEASURES IN PLACE WITH BED AT LOWEST POSITION AND SIDE RAILS UP X 2. CALL LIGHT IS WITHIN REACH. WILL CONTINUE TO MONITOR THROUGHOUT SHIFT.
[2021-03-30] MEDS ORDERED: ENOXAPARIN SODIUM 40 MG/0.4 ML DISP.SYRIN SQ SCH (09:00)
[2021-03-30] MEDS: NICOTINE PATCH (14MG) 14 MG PATCH.TD24 TD SCH (09:19)
[2021-03-30] MEDS: MULTIVIT W/MINERALS 1 TAB TABLET PO SCH (09:19)
[2021-03-30] MEDS: CHOLECALCIFEROL 1,000 UNIT TABLET (VIT D3) PO SCH (09:20)
[2021-03-30] MEDS: ASCORBIC ACID 500 MG TABLET PO SCH (09:20)
[2021-03-30] MEDS: FUROSEMIDE 40 MG TABLET PO SCH (09:20)
[2021-03-30] MEDS: GABAPENTIN 300 MG CAPSULE PO SCH ×3 (09:20→17:09)
[2021-03-30] MEDS: ASPIRIN 81 MG TAB.CHEW PO SCH (09:20)
[2021-03-30] MEDS: METOPROLOL SUCCINATE 50 MG TAB.SR.24H PO SCH (09:21)
--- NOTE | 2021-03-30 12:21 | NUR ---
ILAN called [facility] [phone] and attempted to speak with [facility] D[facility]C plan to [facility]. However, per Jessie, [place] was occupied at the moment and could not provide SW with [place]'s extension. ILAN provided SS contact for [place] to call back when possible. ILAN will meet with pt. to discus alternate Discharge options.
[2021-03-30 16:00] VITALS: BP 118/74
--- NOTE | 2021-03-30 16:08 | NUR ---
"SS Note: ILAN met with pt. to discuss alternative D/C PLAN: ILAN notified pt. that SW attempted to have [facility] assess pt. but they were busy at the moment.ILAN notified pt. that he can follow up with admission to [facility] after discharging by calling them at [facility] [address] [facility] [address] . Pt. stated that he wants to remain in the hospital until placement to a drug rehab is found and he wants to be transferred directly. ILAN educated pt. that per the MD documentation he has been medically cleared and can be discharged. Pt. no longer meets criteria for acute hospitalization. Pt. became upset and but stated he understands. ILAN offered pt. snf placement meanwhile [facility], [facility] or other drug rehab has a bed available for pt. Pt. is agreeable. ILAN called [facility] [phone] to reffer pt. for residential Tx. and was told that the pt. must call himself number as they assess the pt. for admission. ILAN notified pt. and he is agreeable to follow up and call them Pt. has a cell phone [phone]. Pt. requested to shower before he is discharged. ILAN notified charge nurse who is agreeable. D/C PLAN: ILAN provided pt. with snf placement: [facility] [[address] [place] [address] ] accepts intakes after 4:30 pm or [facility] [[address] [place] [address]]; [facility] [[address] [facility] [address] ] accept intakes after 1200 pm. Pt. refused to sign homeless waiver and it was placed in the chart. ILAN provided pt. with homeless, and mental health resources and he accepted them: Year-round shelters: [facility] [address] [place] [address] ; [facility] [place] [address] [place] [address]; [facility] [address] [facility] [address] Winter Shelters: [facility] Provider: [facility] [place] [place] Address: [address], [address] # of Beds: 47 Population Served: [facility] 6 | [facility] Rachana Hernandez [place] Provider: [facility] Address: [address] [place] [address], [address] # of Beds: 66 Population Served: [facility] Brooklynn [place] Provider: First to Serve Address: [address] [facility], [address] # of Beds: 56 Population Served: [facility] Matthias [place] Provider: [facility] Address: [address] [facility], [address] # of Beds: 49 Population Served: [facility] 8 | [facility] Provider: First to Serve Address: [address] [facility]. [place], [address] # of Beds: 37 Population Served: [facility] Hygiene: [facility] [facility]: [address] [facility] ; [place] [facility] [address] [facility] ; [facility] 6901 [facility] . Food Resources: [place] Food [facility] at [facility]- 57[address] [facility]; Meet Each Need with Dignity ([facility]) [address] [facility]; [facility] Food Pantry 4390 [facility]; [facility] 8512 [facility]. Mental Health resources provided: [facility] [address] [place] [address] ; [facility] Inc[facility] [address] [facility] [address], [place] [address] ; [place] [facility] [address] [place] [address] ; [place] [facility] [address] [place], [place] [phone] Healthcare Clinics: [facility] [address] [facility], [address] [place]. [place] ; [facility] [address] [facility] [address] [place] [address]; [facility] [address] [facility] [place] [address] [phone] Counseling[facility] [address] [facility], [place] [address] (Specializes in in-depth psychotherapy for emotional distress: anxiety, depression, interpersonal conflicts, life transitions, childhood abuse) [facility] [address] [place] [address] (Assist with solving problem marital difficulties, separation & divorce, aging parents, & grief, chronic & terminal illness) [facility] [address] [place] [address] (Deal with loss & grief, anxiety, marital difficulties) Homebound/Mental Health Services [address] [facility], [address] [place] [address] (Provide in-home mental services to people who are incapable of leaving their homes) Organization for Needs of the Elderly Senior Service/Resource Center [address] [place] [address] [facility] 6514 [facility] [place] [address] PSYCHIATRIC OUTPATIENT SERVICES [facility] Partial Hospitalization and Intensive Outpatient Program (Managed Care and [place] Only)[address] [facility]. [facility] [phone] [facility] Partial Hospitalization and Outpatient [id number] [place], [place] [phone] ERNESTINA JENNIFER [facility] [id number] [facility]. [address] [place], [place] [phone] [facility] Partial Hospitalization and Outpatient Hmxulde[address]12 [address], [phone] Substance Abuse resources provided included: [facility] Substance Abuse Self-Helpline ([facility]) ; [facility] [address] [facility]. [place] [address] ; [facility] [place] [address] [facility] [address] ; [facility] Rehabilitation Program [address] [facility]. [place] [phone] ; [facility] [address] [facility] [phone] ; [facility] 4940 [facility] [address] ; [facility] [address] [facility] [phone] ; [facility] Substance Abuse Helpline([facility] ; [facility] ; [facility]; [facility] [place]; [facility] [place]; [facility] [place]; [facility] [place]; [place]; [facility] [place]; [facility] [place]; Alcoholics Anonymous -SFV; Bs-Qpik-Uiysvqg ; Marijuana Anonymous -SFV; Narcotics Anonymous www.na.org"
--- NOTE | 2021-03-30 18:00 | NUR ---
DEPORTATION EXAMINER NOTES DISCHARGE ORDER RECEIVED FOR PATIENT. ALERT AND ORIENTED X 4. NO SIGNS OR SYMPTOMS OF DISTRESS NOTED. NO COMPLAINTS OF PAIN AT THIS TIME. PATIENT IS ABLE TO MAKE NEEDS KNOWN. DISCHARGE SUMMARY REVIEWED AND SIGNED BY PATIENT. COPY GIVEN TO PATIENT. PATIENT REFUSED PHOTOS AT THIS TIME. ALL NEEDS MET THROUGHOUT SHIFT. ID BAND AND IV ACCESS REMOVED. OBSERVED PATIENT LEAVE UNIT WITH BRETT [place]RAEL AT THIS TIME.
== END 2021-03-30 18:15 | DRG 203 ==
LOC: ER 16:37 → TELE 22:43 → MED 03-29 10:34
PROVIDERS: ADMIT Registered Nurse; ATTEND Nurse Practitioner Acute Care
DX: M94.0 Chondrocostal junction syndrome [Tietze] (principal); J69.0 Pneumonitis due to inhalation of food and vomit; G92 Toxic encephalopathy; Z95.2 Presence of prosthetic heart valve; I10 Essential (primary) hypertension; E87.6 Hypokalemia; G89.4 Chronic pain syndrome; Z20.822 Contact with and (suspected) exposure to COVID-19; F15.10 Other stimulant abuse, uncomplicated; F90.9 Attention-deficit hyperactivity disorder, unspecified type; Z79.82 Long term (current) use of aspirin; Z79.899 Other long term (current) drug therapy; Z59.0 Homelessness; Z86.73 Personal history of transient ischemic attack (TIA), and cerebral infarction without residual deficits; Z72.0 Tobacco use; Z86.79 Personal history of other diseases of the circulatory system; I27.20 Pulmonary hypertension, unspecified; M50.30 Other cervical disc degeneration, unspecified cervical region; Z90.49 Acquired absence of other specified parts of digestive tract; I08.0 Rheumatic disorders of both mitral and aortic valves; F29 Unspecified psychosis not due to a substance or known physiological condition
CPT/HCPCS: 36415; 70450-TC; 71045-TC; 80048-TC; 80053-TC; 80061-TC; 80076-TC; 82962-TC; 83735-TC; 83880; 84100-TC; 84443-TC; 84484-TC; 85025-TC; 87081-TC; 93307-TC; C9803; G0378; G0480; J1650; J2060; J2270

== ENCOUNTER 2021-05-28 12:13 | Emergency (ER) | payer OTHER ==
[~2021-05-28] VITALS: Ht 182.9 cm; Wt 79.4 kg
[~2021-05-28 12:13] MED LIST changes: +ALPR0.25 PO; +AMPH20TA3 PO; +ASCO-352 PO; -BUPR1FIL SL; +CHOL100062 PO; +FURO40TA5 PO; +GABA-532 PO; -GABA600T12 PO; -METH-406 PO; +MULT-447 PO
[2021-05-28 12:40] VITALS: BP 118/81
--- NOTE | 2021-05-28 12:51 | NUR ---
AT BEDSIDE FOR EVAL.
[2021-05-28] MEDS ORDERED: ACETAMINOPHEN ES 500 MG TABLET PO ONE (13:00)
[2021-05-28] MEDS ORDERED: ACETAMINOPHEN ES 500 MG TABLET ONE (13:22)
[2021-05-28] MEDS ORDERED: LORAZEPAM 1 MG TABLET ONE (13:50)
--- NOTE | 2021-05-28 13:55 | NUR ---
Patient given written and verbal discharge instructions. Patient verbalizes understanding of instructions. Patient is ambulatory with steady gait. Refuses offer of care home placement. Patient given list of available shelters in surrounding area.
[2021-05-28] MEDS ORDERED: LORAZEPAM 1 MG TABLET PO ONE (14:00)
== END 2021-05-28 13:57 | disposition home or self-care (01) ==
LOC: ER 12:17
DX: R51.9 Headache, unspecified (principal); I10 Essential (primary) hypertension; F90.9 Attention-deficit hyperactivity disorder, unspecified type; F17.200 Nicotine dependence, unspecified, uncomplicated; Z59.0 Homelessness; Z79.899 Other long term (current) drug therapy; Z79.82 Long term (current) use of aspirin

== ENCOUNTER 2021-08-12 04:08 | Emergency (ER) | payer OTHER ==
[~2021-08-12] VITALS: Ht 172.7 cm; Wt 79.4 kg
[2021-08-12 04:16] VITALS: BP 138/83
--- NOTE | 2021-08-12 07:33 | NUR ---
Patient discharged to home in stable condition. Written and verbal after care instructions given. Patient verbalizes understanding of instruction.
== END 2021-08-12 07:34 | disposition home or self-care (01) ==
LOC: ER 04:11
DX: M43.16 Spondylolisthesis, lumbar region (principal); I10 Essential (primary) hypertension; F90.9 Attention-deficit hyperactivity disorder, unspecified type; F17.200 Nicotine dependence, unspecified, uncomplicated; Z98.890 Other specified postprocedural states; Z59.00 Homelessness unspecified; Z79.899 Other long term (current) drug therapy; Z79.82 Long term (current) use of aspirin
CPT/HCPCS: 72050-TC

== ENCOUNTER 2021-09-04 06:15 | Emergency (ER) | payer OTHER ==
[~2021-09-04] VITALS: Ht 182.9 cm; Wt 79.4 kg
[2021-09-04 06:34] VITALS: BP 139/88
[2021-09-04] MEDS ORDERED: IBUP-1955 PO (06:40)
== END 2021-09-04 06:51 | disposition home or self-care (01) ==
LOC: ER 06:19
DX: M54.2 Cervicalgia (principal); I10 Essential (primary) hypertension; F90.9 Attention-deficit hyperactivity disorder, unspecified type; F17.200 Nicotine dependence, unspecified, uncomplicated; Z98.890 Other specified postprocedural states; Z60.2 Problems related to living alone; Z79.899 Other long term (current) drug therapy; Z79.82 Long term (current) use of aspirin

== ENCOUNTER 2021-12-12 21:30 | Emergency (ER) | payer OTHER ==
[~2021-12-12] VITALS: Ht 182.9 cm; Wt 77.6 kg
[~2021-12-12 21:30] MED LIST changes: +IBUP-1955 PO
[2021-12-12] MEDS ORDERED: NALO4SPR BNOSTRILS (22:44)
--- NOTE | 2021-12-12 23:00 | NUR ---
PATIENT BIBRA 60 FROM 711 C/O SMOKED HEROIN. GIVEN 4 IVP ZOFRAN AND 4 NARCAN STOKER INSTALLATION MECHANIC. PATIENT IS A/O X 4, RR EVEN AND UNLABORED, NO SOB NOTED. PATIENT VSS. PATIENT TAKEN TO ER BED 15. PATIENT CONNECTED TO CARDIAC AND POX MONITOR. SITTER AT PATIENT BEDSIDE.
[2021-12-13] VITALS: BP 122/70
--- NOTE | 2021-12-13 05:30 | NUR ---
IV removed. Catheter intact and site benign. Pressure and 4x4 applied to site. No bleeding noted.
--- NOTE | 2021-12-13 05:52 | NUR ---
Patient discharged to home in stable condition. Written and verbal after care instructions given. Patient verbalizes understanding of instruction.
== END 2021-12-13 05:53 | disposition home or self-care (01) ==
LOC: ER 21:32
DX: T40.1X1A Poisoning by heroin, accidental (unintentional), initial encounter (principal); R11.0 Nausea; I10 Essential (primary) hypertension; F17.200 Nicotine dependence, unspecified, uncomplicated; Z86.79 Personal history of other diseases of the circulatory system; Z86.59 Personal history of other mental and behavioral disorders; Z95.2 Presence of prosthetic heart valve; Z87.19 Personal history of other diseases of the digestive system; Z60.2 Problems related to living alone; Z79.1 Long term (current) use of non-steroidal anti-inflammatories (NSAID); Z79.82 Long term (current) use of aspirin; Z79.899 Other long term (current) drug therapy; Y92.89 Other specified places as the place of occurrence of the external cause

== ENCOUNTER 2022-11-30 06:32 | Emergency (ER) | payer OTHER ==
[~2022-11-30] VITALS: Ht 177.8 cm; Wt 79.4 kg
[~2022-11-30 06:32] MED LIST changes: +NALO4SPR BNOSTRILS
--- NOTE | 2022-11-30 07:15 | NUR ---
RECEIVED PT C/O PAIN AND SWALLEN ONLT LEG PT MOVED FROM BED 19
--- NOTE | 2022-11-30 08:04 | NUR ---
pt seen by ultrasound
--- NOTE | 2022-11-30 08:12 | NUR ---
NEGATIVE FOR DVT PER US MD ESTHER MADE AWARE
[2022-11-30] MEDS ORDERED: CEPH500C2 PO ×2 (08:27→10:16)
--- NOTE | 2022-11-30 08:40 | NUR ---
Discharge paperwork Discussed with pt. Verbalized understanding and signed.
--- NOTE | 2022-11-30 08:40 | NUR ---
Informed turntable worker about patient asking for placement
--- NOTE | 2022-11-30 09:34 | NUR ---
"SW Consult: SW consult requested for patient possible homelessness. Patient was brought in due to ankle pain. Patient presents alert and oriented x3 (self,place,time). Patient reported that he has been homeless for the past four years. He stated prior this current condition he has living with his family. Patient stated that he has been living on the streets and wants to return back to the streets. Patient reported he has no support at this time. Patient expressed that he has history of mental illness and pt denied. SW assessed for suicidal or homicidal, pt denied. SW assessed any hallucinations visual/auditory, pt denied. SW assessed for substance abuse and pt expressed that he smokes cigarettes. Pt denies using drugs. SW offered pt resources and pt was accepting of shelters and substance abuse referrals. SW placed waiver form in the chart. DC Plan: Pt would want to be discharged to the streets. Substance Abuse resources provided included: [facility] Substance Abuse Self-Helpline ([facility]) ; [facility] [address] [facility] [place] [id number] ; [facility] [address] [facility] [address] ; [facility] [address] [facility] [phone] ; [facility] [phone] ; [facility] [address] [facility] [phone] ; [facility] 909 [facility] [address] ; [facility]stance Abuse Helpline([facility] ; [facility] ; [facility] [place]; [facility] [place]; [facility] Keon Manning; [facility] [place]; [facility] [place]; [facility]; [facility], [facility]. [facility]; Alcoholics Anonymous -[facility]V; Am-Eqor-Cvwozer ; Marijuana Anonymous -[facility]; Narcotics Anonymous www.na.org; Shelters: Arlene [place] Provider: [facility] [place] Address: [address], [address] # of Beds: 47 Population Served: [facility] 6 | [facility] Rachana JuradoFirstHealth Provider: [facility] Address: [address] [place] [address], [address] # of Beds: 66 Population Served: [facility] Venus Provider: [facility] Address: [address] [facility], [address] # of Beds: 56 Population Served: [facility] Matthias [place] Provider: [facility] Address: [address] [place] [address], [address] # of Beds: 49 Population Served: [facility] 8 | [facility] Provider: [facility] Address: [address] [facility], [address] # of Beds: 37 Population Served: [facility] Hygiene: [facility]: [address] [place] StoneeErica Irvine ; [facility] [facility] [address] [facility] ; [facility] [address] . Food Resources: [place] [facility] at [facility]- 5[address] [facility]; Meet Each Need with Dignity ([facility]) [address] Job Miles . [place]; [facility] Food Pant[facility] 5095 [facility]; [facility] 4010 Inga Xiong. Mental Health resources provided: [facility] [address] [place], [place] [address] ; [facility] [address] [facility] [address], [place], [place] [phone] ; [facility] [address] [facility] [address] [place], [place] [phone] ; [facility] [address] [place], [place] [address] Healthcare Clinics: [facility] [address] [facility], [address] [place]. [place] ; [facility] [address] [facility] [address] [place] [address]; [facility] [address] [facility] [place] [address] [phone]) [phone] Counseling--Outpatient [facility] [address] [facility], [place] [address] (Specializes in in-depth psychotherapy for emotional distress: anxiety, depression, interpersonal conflicts, life transitions, childhood abuse) [facility] [address] [place] [address] (Assist with solving problem marital difficulties, separation & divorce, aging parents, & grief, chronic & terminal illness) [facility] [address] [place] [address] (Deal with loss & grief, anxiety, marital difficulties) Homebound/Mental Health Services [address] [facility], [address] [place], [place] [address] (Provide in-home mental services to people who are incapable of leaving their homes) [facility] Senior Service/Resource Center [address] [address] [facility] [place] [address] [facility] 6514 [facility]. [place], [place] [id number] PSYCHIATRIC OUTPATIENT SERVICES [facility] Partial Hospitalization and Intensive Outpatient Program (Managed Care and [place] Only)[address] [address] Patricia. [facility] [phone] [facility] Partial Hospitalization and Outpatient Yowwwmd[address] [place], [place] [phone] [facility] [id number] [address]. [address] [place], [place] [phone] [facility] Partial Hospitalization and Outpatient Ormwmrn[address] [place], [phone] "
--- NOTE | 2022-11-30 09:41 | NUR ---
seen by director of social services. provided w/ homeless [facility] resources. provided w. tap card. d/c in stable condition. refused to sign homeless waiver form.
[2022-11-30 09:49] VITALS: BP 136/82
== END 2022-11-30 09:50 | disposition home or self-care (01) ==
LOC: ER 06:42
DX: L03.116 Cellulitis of left lower limb (principal); I10 Essential (primary) hypertension; F17.200 Nicotine dependence, unspecified, uncomplicated; Z98.890 Other specified postprocedural states; Z79.899 Other long term (current) drug therapy; Z79.82 Long term (current) use of aspirin; Z60.2 Problems related to living alone
CPT/HCPCS: 93971-TC

== ENCOUNTER → 2023-01-18 | Emergency (ER) | payer OTHER ==
[~2023-01-18] VITALS: Ht 182.9 cm; Wt 77.6 kg
[~2023-01-18] MED LIST changes: +CEPH500C2 PO; +IV NS 0.9% 1,000 ML BAG IV ONE
--- NOTE | 2023-01-18 11:45 | NUR ---
PT CAME TO ER FOR WEAKNESS X5 DAYS. CLOTHES REMOVED AND GOWN UP.
[2023-01-18 12:45] LABS: BASOPHILS % (AUTO) 0.8 % (0.0-2.0); EOSINOPHILS % (AUTO) 2.1 % (0.0-6.0); HEMATOCRIT 30 % (39-51); HEMOGLOBIN 9.4 g/dL (13.5-17.5); LYMPHOCYTES # (AUTO) 1.2 K/uL (0.8-4.8); LYMPHOCYTES % (AUTO) 25.8 % (20.0-44.0); MEAN CORPUSCULAR HGB CONC 31 g/dl (31.0-36.0); MEAN CORPUSCULAR VOLUME 83 fL (80-96); MONOCYTES # (AUTO) 0.4 K/uL (0.1-1.30); MONOCYTES % (AUTO) 8.9 % (2.0-12.0); NEUTROPHILS # (AUTO) 2.9 K/uL (1.8-8.9); NEUTROPHILS % (AUTO) 62.4 % (43.0-81.0); PLATELET COUNT (AUTO) 245 K/uL (150-450); RED BLOOD CELL COUNT(AUTO) 3.62 MIL/uL (4.5-6.0); WHITE BLOOD COUNT (AUTO) 4.6 K/uL (4.3-11.0)
--- NOTE | 2023-01-18 12:55 | NUR ---
PATIENT TAKEN TO CT VIA [facility]
[2023-01-18 13:16] LABS: CALCIUM, SERUM 8.1 mg/dL (8.5-10.1); CARBON DIOXIDE 29 mmol/L (21-32); CHLORIDE 106 mmol/L (98-107); CREATININE 0.6 mg/dL (0.6-1.3); GLUCOSE 77 mg/dL (74-106); POTASSIUM 4.1 mmol/L (3.5-5.1); SODIUM SERUM 138 mmol/L (136-145); UREA NITROGEN, BLOOD 20 mg/dL (7-18)
[2023-01-18 13:21] LABS: ALANINE AMINOTRANSFERASE 24 U/L (12-78); ALBUMIN 2.7 g/dL (3.4-5.0); ALCOHOL, BLOOD < 3 mg/dL (0-0); ALKALINE PHOSPHATASE 99 U/L (46-116); ASPARTATE AMINOTRANSFERASE 22 U/L (15-37); BILIRUBIN,DIRECT 0.1 mg/dL (0.0-0.2); BILIRUBIN,TOTAL 0.2 mg/dL (0.2-1.0)
--- NOTE | 2023-01-18 17:24 | NUR ---
CALLED DR. VO [phone] [facility] 2 MELODY DE SANTIAGO MD.
[2023-01-18 18:09] VITALS: BP 126/72
--- NOTE | 2023-01-18 18:43 | NUR ---
Patient discharged to home in stable condition. Written and verbal after care instructions given. Patient verbalizes understanding of instruction.IV removed. Catheter intact and site benign. Pressure and 4x4 applied to site. No bleeding noted.
== END | disposition home or self-care (01) ==
LOC: ER 11:29
DX: S02.32XA Fracture of orbital floor, left side, initial encounter for closed fracture (principal); T40.601A Poisoning by unspecified narcotics, accidental (unintentional), initial encounter; R53.1 Weakness; F19.10 Other psychoactive substance abuse, uncomplicated; I10 Essential (primary) hypertension; F17.200 Nicotine dependence, unspecified, uncomplicated; Z98.890 Other specified postprocedural states; Z60.2 Problems related to living alone; Z79.899 Other long term (current) drug therapy; Z79.82 Long term (current) use of aspirin; X58.XXXA Exposure to other specified factors, initial encounter; Y93.89 Activity, other specified; Y92.89 Other specified places as the place of occurrence of the external cause; Y99.8 Other external cause status
CPT/HCPCS: 99285; 96360; 93005; 71045; 70450; 70486; 85025; 80048; 83605; 80076; 36415; 84484 ×2; 80143; 80320; J7030; G0480